=== PATIENT | male | born 1970 | race Two or more races ===

== ENCOUNTER 2024-10-23 13:30 | Outpatient (AMB) | payer MEDICAID, SELFPAY ==
[2024-10-23 13:42] VITALS: BP 125/85; PULSE 81; RESP 18; TEMP 36.3; O2SAT 93; BMI 34.0
--- NOTE | 2024-10-23 13:42 | ACNOTE_ITS ---
Vital Signs 10/23/24 13:42 Height 1.7 m Height Method Stated Weight 98.203 kg Weight Measurement Method Standing Scale BMI 34.0 BP 125/85 H Blood Pressure Source Automatic Cuff Blood Pressure Location Left Upper Arm Position Sitting Respiration 18 Pulse 81 Pulse Source Monitor Temp 97.3 F Temp Source Oral Pulse Oximetry (%) 93 L Oxygen Delivery Method Room Air Allergies/Meds Allergies & Medications Allergies ibuprofen Allergy (Severe, Verified 11/20/24 13:14) Difficulty Breathing Medication Reconciliation albuterol sulfate 90 mcg/actuation breath activated powder inhaler 1 inh inha lation QID PRN Wheezing or shortness of breath #1 ea 04/10/24 [Rx Confirmed 11/20/24] hydrocortisone 1 % topical cream (Anti-Itch (hydrocortisone)) 1 applic topical QDAY PRN skin irritation #28.35 grams 06/22/24 [Rx Confirmed 11/20/24] nebulizers #1 ea 08/07/24 [Rx Confirmed 11/20/24] budesonide-formoterol HFA 160 mcg-4.5 mcg/actuation aerosol inhaler (Symbicort) 2 puff inhalation BID 1 month #10.2 grams 10/05/24 [Rx Confirmed 11/20/24] gabapentin 100 mg capsule 100 mg PO QHS #7 caps 10/05/24 [Rx Confirmed 11/20/24] indomethacin 25 mg capsule 25 mg PO BID #10 caps 10/05/24 [Rx Confirmed ] albuterol sulfate 1.25 mg/3 mL solution for nebulization 1.25 mg (3 mL) inhalation QID PRN shortness of breath or wheezing #90 mL 11/06/24 [Rx Confirmed 11/20/24] albuterol sulfate 90 mcg/actuation aerosol inhaler 2 inh inhalation Q4H PRN shortness of breath or wheezing #8.5 grams 11/06/24 [Rx Confirmed 11/20/24] montelukast 10 mg tablet 10 mg PO QDAY asthma #30 tabs 11/06/24 [Rx Confirmed 11/20/24] prednisone 20 mg tablet 40 mg PO QDAY PRN asthma flare 5 days #30 tabs 11/20/24 [Rx] MA Intake Visit Data Collection New Patient or Established: Established Patient (seen at [facility] within 3 years) Seen by Clinical Staff ONLY (RN/MA): No Pain Present Currently: No Pain scale:: 0 Pain Scale Used: [place]/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 Required: No PCP or OBGYN visit in last 3 months: Yes Do You Feel Safe at Home: Yes Authorities Contacted: N/A Smoking Status Smoking Status: Never smoker Immunization / Flu Flu Vaccine in the Last 12 Months: No Flu Vaccine Exclusion Criteria: Refused by Patient Past Medical History Past Medical History NEUROLOGIC: Negative Neurological Disorders or Seizures CARDIAC: Negative Cardiac Disorders or Congestive Heart Failure RESPIRATORY: Positive Asthma; Negative Chronic Obstructive Pulmonary Disease (COPD) GASTROINTESTINAL: Negative Gastrointestinal Disorders or Hepatitis GENITOURINARY: Positive Genitourinary Disorders, Kidney Stones and Inguinal Hernia; Negative Renal Disease, Polycystic Kidney Disease, Neurogenic Bladder, Dialysis or Benign Prostatic Hyperplasia MUSCULOSKELETAL: Positive Fractures; Negative Arthritis ENDOCRINE: Negative Endocrine Disorders, Diabetes Mellitus Type 1 or Diabetes Mellitus Type 2 HEMATOLOGIC: Negative Blood Disorders OTHER HISTORY: Negative Hospitalization, Autoimmune Disease, Shingles, Falls, Blood Transfusions, Blood Transfusion Reaction, Anesthesia Reactions, MRSA or Cancer Family History FAMILY HISTORY: Positive Family Cardiac Disorders and Family Cancer; Negative Family Psychiatric Problems, Family Respiratory Disorders, Family Gastrointestinal Problems, Family Surgery or Family Anesthesia Reaction Surgical History SURGICAL: Negative Cardiac Surgery, Endocrine Surgery, Ear Surgery, Abdominal Surgery, Joint Replacement or Neurologic Surgery Social History SMOKING STATUS: Smoking status: Never smoker ALCOHOL: Alcohol Intake: Never HOUSING: Housing: Apartment LIVES WITH: Lives With: Alone Patient Portal [employer] Social History Living Situation History Housing: Apartment Tobacco History Smoking Status: Never smoker Alcohol History Alcohol Intake: Never Domestic Abuse History Do You Feel Safe at Home: Yes Review of Systems Report any current symptoms Only answer those that you have currently: Past Medical History Past Medical History Have you ever been diagnosed with any of the following: Neurological Problems Seizures: No Cardiology Problems Congestive Heart Failure: No Respiratory Problems Chronic Obstructive Pulmonary Disease (COPD): No Asthma: Yes Stomache/Intestinal Problems Hepatitis: No Genital/Urinary Problems Renal Disease: No Kidney Stones: Yes Polycystic Kidney Disease: No Neurogenic Bladder: No Inguinal Hernia: Yes Dialysis: No Benign Prostatic Hyperplasia: No Musculoskeletal Problems Arthritis: No Fractures: Yes Endocrine Problems Diabetes Mellitus Type 1: No Diabetes Mellitus Type 2: No Other Problems Hospitalization: No Autoimmune Disease: No Shingles: No Falls: No Blood Transfusions: No Blood Transfusion Reaction: No Anesthesia Reactions: No MRSA: No Cancer: No History of Present Illness HPI Narrative Patient is a 53 year old With a past medical history of bronchial asthma. He had multiple hospitalizations for the year due to exacerbations with the last ED visits 1 week ago. He did not have any ICU admissions. Patient is on maximum dose of LABA/ICS and albuterol inhaler as needed. He is currently the last 3 days of methylprednisone treatment as last ED visit. [ 08/07] patient reports daily exacerbations with shortness of breath at nighttime. He is unable to sleep due to constant wheezing not resolved by albuterol inhaler. Patient's technique of inhaler use was observed to be adequate and he is compliant with his medication. [08/14] patient had no relief of symptoms after addition of Montelukast last visit. Patient still did not get nebulizer machine. Daily night-time wheezing preventing patient from sleeping. Started on Prednisolone taper today and routine labs ordered. [09/13] patient here for 1 month follow up. Significant relief from asthma with montelukast and completed prednisone. Only complains of some wheezing at night. Endorses snoring, waking up at night from feeling like choking, daytime fatigue. Pulmnonology and sleep study referral pending. Labs reviewed significant for pre-diabetes and hyperlipidemia. Patient states since having asthma he has not been going to the gym or eating well lately. He is motivated for lifestyle changes. Will follow up in 3 months for A1c. 10/05/24: The patient presented with chief complaint of numbness over anterior lateral aspect of right thigh for past couple of weeks. He reported that his numbness increases when he is sitting for prolonged duration. It is also relieved by standing and stretching his lower limbs. He denied any headache, nausea or vomiting, chest pain, SOB, any changes in bowel or bladder habit or leg swelling. He also denied any fever or chills. 10/16/2024 Patient complains of daily wheezing for the past week, waking up at night 4/5 times to use rescue inhaler. Endorses SOB on doing his normal activity. Had to leave work today due to severe wheezing. Today he is saturating 91% on RA Currently on Symbicort 2 puff po BID and Montelukast 10 mg po daily. Ventolin inhaler and nebulizer prn. Recently completed 2 courses of steroids. From last labs patient is pre diabetic HbA1c 6.2 % and Cholesterol elevated. Will try lifestyle modification for now and repeat labs in November. 10/23/2024 Patient's wheezing is now under control and he had no exacerbations since completing his 5-day course of prednisone. He uses his nebulizer at night as needed. Patient has now returned to work and is doing much better. Advised to continue taking his Symbicort and montelukast daily along with Ventolin inhaler or nebulizer as needed. Will follow-up with patient in 2 months Objective/Exam Narrative Physical exam: Constitutional Alert, oriented x 3 and comfortable HEENT Vision grossly intact. Patent nares. Trachea midline Respiratory Chest normal on inspection and clear auscultation bilaterally Cardiovascular S1 and S2 audible, RRR. No murmurs carotid bruit. No gross JVD. Abdominal Soft and non tender to palpation in all quadrants. BS + Genitourinary No bladder tenderness, no flank pain. Normal to palpation Musculoskeletal Extremities tone within normal limits. No LE edema. Neurological CN II - XII grossly intact. Extremity motor and sensation grossly intact. Skin Warm, dry and intact. No apparent lesions. Psychiatric Patient has good affect, is cooperative Assessment & Plan Diagnosis / Problem List (1) Active asthma: Status: Chronic Assessment & Plan: Patient complains of daily wheezing for the past week, waking up at night 4/5 times to use rescue inhaler. Endorses SOB on doing his normal activity. Had to leave work today due to severe wheezing. Today he is saturating 91% on RA Currently on Symbicort 2 puff po BID and Montelukast 10 mg po daily. Ventolin inhaler and nebulizer prn. Recently completed 2 courses of steroids. Was counselled on avoiding triggers, wearing mask in public and getting an air purifier at previous visit Patient's wheezing is now under control and he had no exacerbations since completing his 5-day course of prednisone. He uses his nebulizer at night as needed. Patient has now returned to work and is doing much better. Advised to continue taking his Symbicort and montelukast daily along with Ventolin inhaler or nebulizer as needed. Will follow-up with patient in 2 months Plan: - To continue symbicort 160/4.5 2 puffs BID - To continue Montelukast 10 mg po Qdaily - Try using BOBBY before bed for wheezing. - Refilled albuterol solution for nebulization ? Will follow-up with patient in 2 months - Patient counselled if any persistent or worsening symptoms to report to the ED (2) Obstructive sleep apnea: Status: Chronic Assessment & Plan: STOPBANG score 6 Waking up frequently at night and subsequent daytime fatigue, requiring energy drinkss Plan: - Referral for pulmonlogy for sleep study. Pending insurance authorization (3) Prediabetes: Status: Chronic Assessment & Plan: A1c 6.2 Plan: - Counselled on lifestyle modifications: exercise and diet, cutting back on sugar - Patient motivated - Recheck A1c in 3 months. November (4) Hyperlipidemia: Status: Chronic Qualifiers: Hyperlipidemia type: moderate mixed hyperlipidemia not requiring statin therapy Qualified Code(s): E78.2 - Mixed hyperlipidemia Assessment & Plan: Increased from last visit. Patient attributes to diet and has not been exercising regularly. Plan: - Will try lifestyle modifications first - If LDL remains high, consider starting statin (5) Meralgia paresthetica of right side: Status: Resolved Assessment & Plan: The patient presented with chief complaint of numbness over right anterolateral aspect of thigh for past couple of weeks. He admitted wearing tight clothes and his numbness increases after sitting for prolonged period. Patient now endorses improvement of pain and no longer needs to take medications Plan: -Patient took the prescribed indomethacin and gabapentin for 3 days and then stopped taking due to the pain resolving -Recommended to wear loose clothes -Recommended warm compression -Recommended stretching exercises Additional Assessment Attending note: I, Leo Leary MD, attest that I was physically present for the daniels portions of the service and evaluated the patient with the resident and I reviewed and discussed the case with the resident and agree with the resident's findings and plans of care as documented above. Asthma improved with a 5-day cou rse of prednisone. Has returned to work. Continuing with baseline asthma treatment regimen. Has been referred to pulmonology for further evaluation. Reviewed diet and exercise measures to help with both glucose control and lipid control. Leo Leary MD Physician Billing Established Patient Established Patient: E/M Level 3-CPT 04204 Office Procedures [facility] Level of Care Nursing/Assessment Patient Status: Established Patient Nursing Assessment/Reassessment: Medication Reconciliation, Update PMH in EMR and Vital Signs Coordination of Care: Complex Care and Chronic Disease 1-5, Consent,records obtained, informed consent, Education Simp Pt/Fam and Staff clarify orders Established Patient Charge Established Patient Point Assignment: 85 Established Patient Point Charge: EP Level 3 (80-115)
== END 2024-10-23 14:25 | disposition home or self-care (01) ==
LOC: HODAHC 13:30
PROVIDERS: Supervising Provider Internal Medicine
DX: J45.909 Unspecified asthma, uncomplicated (principal); G47.33 Obstructive sleep apnea (adult) (pediatric); R73.03 Prediabetes; E78.2 Mixed hyperlipidemia
CPT/HCPCS: 99213; G0463

== ENCOUNTER 2024-11-06 14:21 | Outpatient (AMB) | payer MEDICAID, SELFPAY ==
[2024-11-06 15:05] VITALS: BP 128/84; PULSE 85; RESP 18; TEMP 36.3; O2SAT 90; BMI 34.0
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
== END 2024-11-06 15:26 | disposition home or self-care (01) ==
LOC: HODAHC 14:21
PROVIDERS: Supervising Provider Internal Medicine
DX: J45.909 Unspecified asthma, uncomplicated (principal); G47.33 Obstructive sleep apnea (adult) (pediatric); R73.03 Prediabetes; E78.2 Mixed hyperlipidemia
CPT/HCPCS: 99213; G0463

== ENCOUNTER 2024-11-20 13:07 | Outpatient (AMB) | payer MEDICAID, SELFPAY ==
[2024-11-20 13:14] VITALS: BP 132/82; PULSE 92; RESP 18; TEMP 36.8; O2SAT 92; BMI 33.7
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
== END 2024-11-20 13:49 | disposition home or self-care (01) ==
LOC: HODAHC 13:07
PROVIDERS: Supervising Provider Internal Medicine
DX: J45.909 Unspecified asthma, uncomplicated (principal); G47.33 Obstructive sleep apnea (adult) (pediatric); R73.03 Prediabetes; E78.2 Mixed hyperlipidemia
CPT/HCPCS: 99213; G0463

== ENCOUNTER 2025-01-08 14:32 | Outpatient (AMB) | payer MEDICAID, SELFPAY ==
[2025-01-08 09:58] VITALS: BP 150/84; PULSE 96; RESP 17; TEMP 36.9; O2SAT 93; BMI 33.0
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
== END 2025-01-08 15:03 | disposition home or self-care (01) ==
LOC: HODAHC 14:32
PROVIDERS: Supervising Provider Internal Medicine
DX: J45.909 Unspecified asthma, uncomplicated (principal)
CPT/HCPCS: 99213; G0463

== ENCOUNTER 2025-01-10 09:45 | Outpatient (AMB) | payer MEDICAID, SELFPAY ==
[2025-01-10 09:56] VITALS: BP 128/80; PULSE 96; RESP 17; TEMP 36.9; O2SAT 93; BMI 32.8
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
== END 2025-01-10 11:01 | disposition home or self-care (01) ==
LOC: HODAHC 09:45
PROVIDERS: Supervising Provider Internal Medicine; Visit Provider Student in an Organized Health Care Education/Training Program
DX: J45.909 Unspecified asthma, uncomplicated (principal); B34.9 Viral infection, unspecified
CPT/HCPCS: 99213; G0463

== ENCOUNTER 2025-01-13 05:39 | Emergency (ER) | payer MEDICAID, SELFPAY ==
[2025-01-13 05:40] VITALS: BMI 30.4
[2025-01-13 05:50] VITALS: BP 158/93; PULSE 93; RESP 18; TEMP 36.9; O2SAT 95
--- NOTE | 2025-01-13 05:54 | XR_ITS ---
Examination: PA chest single view Technique: AP chest single view Exam date and time: January 13, 2025 0558 hrs. Comparison July 30, 2024 Indications: Coughing shortness of breath beginning 2 days ago. Findings: Normal heart size Basilar bronchitis versus early bronchopneumonia No pulmonary edema Intact osseous structures Impression: Bibasilar bronchitis versus early bronchopneumonia, clinical correlation advised
--- NOTE | 2025-01-13 05:55 | EDRME_ITS ---
Rapid Medical Screening Exam ON LICENSE OF [facility] Arrival date/time: 01/13/25 05:39 54M with history of asthma presents to ED with 3 days of worsening cough and SOB. Patient went to resident clinic and was put on Tamiflu for presumptive influenza. Chief Complaint: Flu Like Symptoms Vital signs: Vital Signs Temperature 98.4 F 01/13/25 05:50 Pulse Rate 93 01/13/25 05:50 Respiratory Rate 18 01/13/25 05:50 Blood Pressure 158/93 H 01/13/25 05:50 Pulse Oximetry (%) 95 01/13/25 05:50 Oxygen Delivery Method Room Air 01/13/25 05:50
--- NOTE | 2025-01-13 06:23 | EDNOTE_ITS ---
ED General RME/HPI General Chief complaint: Flu Like Symptoms Stated complaint: SORE THROAT, ASTHMA Time Seen by Provider: 01/13/25 06:16 Arrival date/time: 01/13/25 05:39 RME / HPI RME / HPI narrative: 01/13/25 05:39 54M with history of asthma presents to ED with 3 days of worsening cough and SOB. Patient went to resident clinic and was put on Tamiflu for presumptive influenza. DR. LAZO MAIN ED EVALUATION: 54 year old male presents to the Emergency Department with complaint of losing his voice since yesterday. Patient reports a lot of cough onset 3 days. Symptoms are moderate. No fevers, chills, abdominal pain, chest pain, dysuria, or any other symptoms. PMHx: Asthma Social Hx: No tobacco, alcohol, or substance use. Related Data Previous Rx's ?Medication ?Instructions ?Recorded albuterol sulfate 90 mcg/actuation 1 inh inhalation QI D PRN Wheezing 04/10/24 breath activated powder inhaler or shortness of breath #1 ea hydrocortisone 1 % topical cream 1 applic topical QDAY PRN skin 06/22/24 (Anti-Itch (hydrocortisone)) irritation #28.35 grams nebulizers #1 ea 08/07/24 gabapentin 100 mg capsule 100 mg PO QHS #7 caps indomethacin 25 mg capsule 25 mg PO BID #10 caps 10/05 montelukast 10 mg tablet 10 mg PO QDAY asthma #30 tab s 11/06/24 albuterol sulfate 1.25 mg/3 mL 1.25 mg (3 mL) inhalati on QID PRN 01/10/25 solution for nebulization Wheezing/SOB #90 mL budesonide-formoterol HFA 160 2 puff inhalation BID 1 month 01/10/25 mcg-4.5 mcg/actuation aerosol #10.2 grams inhaler (Symbicort) oseltamivir 75 mg capsule (Tamiflu) 75 mg PO BID 5 day s #10 caps 01/10/25 albuterol sulfate 2.5 mg/3 mL 2.5 mg (3 mL) inhalation Q4H PRN 01/13/25 (0.083 %) solution for nebulization shortness of breat h or wheezing #90 mL albuterol sulfate 90 mcg/actuation 2 inh inhalation Q4 H PRN shortness 01/13/25 aerosol inhaler of breath or wheezing #8.5 g michel prednisone 20 mg tablet 20 mg PO QDAY 5 days #5 tabs 01/13/25 Allergies Allergy/AdvReac Type Severity Reaction Status Date / Time ibuprofen Allergy Severe Difficulty Verified 01/10/25 10:04 Breathing Review of Systems Review of Systems Systems Reviewed: All systems reviewed, normal except as documented Narrative Review of Systems: GEN: No fever, no chills, no weight loss, + losing his voice EYES: No discharge, no visual changes, no pain HEENT: No ear pain, no congestion, no sore throat PULM: No shortness of breath, + cough CV: No chest pain, no dyspnea on exertion, no palpitations GI: No nausea, no vomiting, no diarrhea, no pain, no constipation : No frequency, no urgency and no dysuria MUSC/SKEL: No joint pain, no back pain SKIN: No rash PSYCH: No hallucinations, no depression HEME/LYMPH: No easy bleeding or bruising tendencies NEURO: No weakness, no headache Past Medical History Past Medical History NEUROLOGIC: Negative Neurological Disorders or Seizures CARDIAC: Negative Cardiac Disorders or Congestive Heart Failure RESPIRATORY: Positive Asthma; Negative Chronic Obstructive Pulmonary Disease (COPD) GASTROINTESTINAL: Negative Gastrointestinal Disorders or Hepatitis GENITOURINARY: Positive Genitourinary Disorders, Kidney Stones and Inguinal Hernia; Negative Renal Disease, Polycystic Kidney Disease, Neurogenic Bladder, Dialysis or Benign Prostatic Hyperplasia MUSCULOSKELETAL: Positive Fractures; Negative Musculoskeletal Disorders or Arthritis ENDOCRINE: Negative Endocrine Disorders, Diabetes Mellitus Type 1 or Diabetes Mellitus Type 2 HEMATOLOGIC: Negative Blood Disorders OTHER HISTORY: Negative Hospitalization, Autoimmune Disease, Shingles, Falls, Blood Transfusions, Blood Transfusion Reaction, Anesthesia Reactions, MRSA or Cancer Family History FAMILY HISTORY: Positive Family Cardiac Disorders and Family Cancer; Negative Family Psychiatric Problems, Family Respiratory Disorders, Family Gastrointestinal Problems, Family Surgery or Family Anesthesia Reaction Surgical History SURGICAL: Negative Cardiac Surgery, Endocrine Surgery, Ear Surgery, Abdominal Surgery, Joint Replacement or Neurologic Surgery Social History SMOKING STATUS: Never smoker SUBSTANCE USE: does not use ALCOHOL: Never ED Exam Narrative Physical exam: GENERAL APPEARANCE: Well hydrated, well nourished. + hoarseness consistent with laryngitis VITALS: All vitals were reviewed and the pulse ox is 95% on room air which is normal according to my interpretation. HEENT: Normocephalic, atramatic, EOMI, EACs are patent. There is no bulge or retraction. Throat without erythema or exudate. Moist oromucosa. No jaundice NECK: Supple, no JVD or bruits. CARDIOVASCULAR: Heart regular without S3-S4 or murmur. No rubs or gallops. LUNGS/CHEST: There is diminished breath sounds bilaterally and some wheezing. ABDOMEN: Soft, nontender, with normal bowel sounds. No pulsatile masses. No rebound, rigidity, or guarding. No incarcerated hernia. Normal inspection and palpation. EXTREMITIES: No edema, clubbing, or cyanosis. Intact CSM. Normal inspection and palpation. SKIN: Warm and dry without rashes. Normal inspection. MUSCULOSKELETAL: No gross deformity, full ROM all extremities. Normal inspection. NEURO: Alert and oriented x3. Cranial nerves II through XII grossly intact. There are no other motor or sensory deficits noted. PSYCHIATRIC: Normal mood and affect. No psychosis. Course Quality Measures none Orders Category Date Time Status Bedside COVID-19 Antigen Test NOW Care 01/13/25 05:54 Active Bedside Influenza A&B Antigen Test NOW Care 01/13/25 05:55 Completed XR chest 1V portable Stat Exams 01/13/25 05:54 Completed CBC Stat Lab 01/13/25 06:35 Completed Comprehensive Metabolic Panel Stat Lab 01/13/25 06:35 Completed Troponin I Stat Lab 01/13/25 06:35 Completed ALBUTEROL RT 0.5ml [Proventil Rt 0.5ml] Med 01/13/25 08:21 Discontinued 10 mg HHN X1 ONE Budesonide Rt [Pulmicort Rt Alexandra] Med 01/13/25 05:55 Discontinued 0.5 mg INH X1 ONE Dexamethasone Inj [Decadron Inj] Med 01/13/25 05:54 Discontinued 10 mg PO X1 ONE Ipratropium [place] Rt Alexandra [Atrovent Rt Alexandra] Med 01/13/25 05:54 Discontinued 1 mg INH X1 ONE Levalbuterol Rt [Xopenex Rt Alexandra] Med 01/13/25 05:54 Discontinued 5 mg INH X1 ONE Sodium Chloride Rt Alexandra 0.9% [NS Rt Alexandra 0.9%] Med 01/13/25 05:54 Active 3 ml INH PRN PRN Sodium Chloride Rt Alexandra 0.9% [NS Rt Alexandra 0.9%] Med 01/13/25 08:21 Active 3 ml INH PRN PRN predniSONE Med 01/13/25 05:54 Discontinued 40 mg PO X1 ONE Vital Signs Vital signs: Vital Signs Temperature 98.4 F 01/13/25 05:50 Pulse Rate 93 01/13/25 05:50 Respiratory Rate 18 01/13/25 05:50 Blood Pressure 158/93 H 01/13/25 05:50 Pulse Oximetry (%) 95 01/13/25 05:50 Oxygen Delivery Method Room Air 01/13/25 05:50 [facility] Patient data External records reviewed:: [facility] previous records (Reviewed last admission discharge dated 02/23/24, patient admitted for the following: Asthma with acute exacerbation) Clinical information provided by:: patient Social determinants that could affect healthcare access:: none Patient has the following chronic illnesses:: Asthma How is presenting disease/condition affected by chronic disease/condition?: e xacerbated by Evaluation data The following diagnostics were reviewed and interpreted by me:: lab results and radiology exam(s) Lab and/or radiology exams considered but not ordered:: none Interpretation Summary: See above under [facility] narrative. RADIOLOGY Procedure(s): XR chest 1V portable Accession Number(s): [id number] cc: Jeannie Rocha; Steve Cash MD; Paulino Richardson PA-C~ Examination: PA chest single view Technique: AP chest single view Exam date and time: January 13, 2025 0558 hrs. Comparison July 30, 2024 Indications: Coughing shortness of breath beginning 2 days ago. Findings: Normal heart size Basilar bronchitis versus early bronchopneumonia No pulmonary edema Intact osseous structures Impression: Bibasilar bronchitis versus early bronchopneumonia, clinical correlation advised Dictated By: Steve Cash MD Medications Medications considered but not ordered:: none Medication administrations:: Medication Administration History Sodium Chloride (Sodium Chloride Rt Alexandra 0.9% 3 Ml Nebu) 3 ml INH PRN PRN PRN Reason: SOLN Stop: 02/12/25 05:53 Sodium Chloride (Sodium Chloride Rt Alexandra 0.9% 3 Ml Nebu) 3 ml INH PRN PRN PRN Reason: SOLN Stop: 02/12/25 08:20 Discontinued Medications Albuterol (Albuterol Rt 2.5 Mg/0.5 Ml Nebu) 10 mg HHN X1 ONE Stop: 01/13/25 08:22 Last Admin: 01/13/25 08:30 Dose: 10 mg Documented By: CHEO Budesonide (Budesonide Rt 0.5 Mg/2 Ml Nebu) 0.5 mg INH X1 ONE Stop: 01/13/25 05:56 Last Admin: 01/13/25 06:31 Dose: 0.5 mg Documented By: CHEO Dexamethasone Sodium Phosphate (Dexamethasone Sod Phos Inj 10 Mg/Ml Vial) 10 mg PO X1 ONE Stop: 01/13/25 05:55 Last Admin: 01/13/25 08:28 Dose: 10 mg Documented By: Comments: GIVEN PO Ipratropium [place] (Ipratropium Rt 0.5 Mg/ 2.5 Ml Nebu) 1 mg INH X1 ONE Stop: 01/13/25 05:55 Last Admin: 01/13/25 06:31 Dose: 1 mg Documented By: CHEO Levalbuterol HCl (Levalbuterol Rt 1.25 Mg/0.5 Ml Nebu) 5 mg INH X1 ONE Stop: 01/13/25 05:55 Last Admin: 01/13/25 06:31 Dose: 5 mg Documented By: CHEO Prednisone (Prednisone 20 Mg Tablet) 40 mg PO X1 ONE Stop: 01/13/25 05:55 Last Admin: 01/13/25 08:27 Dose: 40 mg Documented By: DO see above Consultations Consultation(s) initiated? (list below): No Diagnosis Differential Diagnosis ED Complaint MDM: Pneumonia. Asthma. Bronchitis. Most likely diagnosis given after review of the tests above:: Asthma. Bronchitis. Admission Indicated Admission indicated?: not indicated Explain why admission is indicated or not indicated:: Patient does not want to be admitted Admission Request Was there a request for admission?: No Disposition Plan Disposition Plan: Discharge Discharge Attestation Discharge Attestation: The patient and all family members were given an opportunity to ask questions and understood the discharge instructions. Discharge instructions specifically effects, indications for sooner follow up or return to the emergency department, and the expected course of current diagnosis. Patient condition: Stable Medical Decision Making MDM Narrative MDM Narrative: Libby Zazuetamonica Don, am scribing for and in the presence of Dr. Lazo. CBC is negative. CMP negative. Troponin negative. COVID-19 and influenza are negative. Chest x-ray interpreted by me: Clear lungs. Heart normal. Mediastinum normal. No infiltrate. No consolidation. Ribs are normal. Clinically speaking the patient has no fever. In the emergency department the patient received nebulizer treatment. As well as O2. And he continued to improve. By 11:30 AM, the patient is alert awake oriented x 4 GCS of 15, lungs are clear full and equal. O2 saturation is 90% room air. I suggested to him that we going to admit him to the hospital because of the O2 saturation being 90%. But he told me that this is chronic for him and my doctors know that . He said the 90% is normal for him. And he wants to go home. He does not want to be admitted. He does have a nebulizer at home Differential Diagnosis Differential Diagnosis: Pneumonia. Asthma. Bronchitis. Lab Data 01/13/25 06:35 01/13/25 06:35 Labs: Lab Results 01/13/25 Range/Units 06:35 WBC 8.4 (3.8-10.6) Thou/mm3 RBC 5.46 (4.50-5.90) Miln/mm3 Hgb 15.8 (13.5-16.0) g/dL Hct 46.2 (41.0-53.0) % MCV 85 (80-100) fL MCH 28.9 (25.0-35.0) pg MCHC 34.2 (31.0-37.0) g/dl RDW Std Deviation 36.1 (35.1-43.9) fL Plt Count 273 (140-440) Thou/mm3 Neut % (Auto) 63 (37-80) % Lymph % (Auto) 23 (10-50) % [place] % (Auto) 7 (0-12) % Eos % (Auto) 5 (0-10) % Baso % (Auto) 1 (0-2.5) % Neut # (Auto) 5.2 (1.8-7.7) Thou/mm3 Lymph # (Auto) 2.0 (1.0-4.8) Thou/mm3 [place] # (Auto) 0.6 (0.0-0.8) Thou/mm3 Eos # (Auto) 0.5 (0.0-0.5) Thou/mm3 Baso # (Auto) 0.1 (0.0-0.2) Thou/mm3 Immature Gran # (Auto) 0.03 H (0.00-0.00) Thou/mm3 Absolute Nucleated RBC 0.00 (0.00-0.00) Thou/mm3 Immature Gran % 0 (0-0) % Nucleated RBC % 0 (0) /100 WBC Sodium 141 (136-145) mMol/L Potassium 4.7 (3.4-5.1) mMol/L Chloride 106 (98-107) mMol/L Carbon Dioxide 28.7 (20.0-31.0) mMol/L Anion Gap 6 L (7-16) BUN 27 H (9-23) mg/dL Creatinine 1.1 (0.6-1.3) mg/dL Estim Creat Clear Calc 83.0 (>60) mL/min eGFR > 60 (60 - ) See Note BUN/Creatinine Ratio 25 H (12-20) Ratio Glucose 102 (74-106) mg/dL Calculated Osmolality 286 (275-295) Calcium 9.1 (8.3-10.6) mg/dL Corrected Calcium 9.1 (8.5-10.1) mg/dL Total Bilirubin 0.6 (0.3-1.2) mg/dL AST 24 (0-34) U/L ALT 18 (10-49) U/L Alkaline Phosphatase 111 (46-116) U/L Troponin I < 0.020 (0.0-0.045) ng/mL Total Protein 6.9 (5.7-8.2) gm/dL Albumin 4.3 (3.5-5.0) gm/dL Globulin 2.6 (2.3-3.5) gm/dL Albumin/Globulin Ratio 1.7 (1.2-2.2) Discharge Plan Plan Patient Disposition: HOME (Self Care) Disposition Comment: Stable and improved Prescriptions/Referrals Prescriptions/Med Rec: New albuterol sulfate 2.5 mg /3 mL (0.083 %) solution for nebulization 2.5 mg inhalation Q4H PRN (Reason: shortness of breath or wheezing) Qty: 90 0RF albuterol sulfate 90 mcg/actuation HFA aerosol inhaler 2 inh inhalation Q4H PRN (Reason: shortness of breath or wheezing) Qty: 8.5 0RF Rx Instructions: With AeroChamber and mask for pediatric use prednisone 20 mg tablet 20 mg PO QDAY 5 Days Qty: 5 0RF No Action albuterol sulfate 90 mcg/actuation aerosol powdr breath activated 1 inh inhalation QID PRN (Reason: Wheezing or shortness of breath) Qty: 1 6RF budesonide-formoterol [Symbicort] 160-4.5 mcg/actuation HFA aerosol inhaler 2 puff inhalation BID 30 Days Qty: 10.2 6RF oseltamivir [Tamiflu] 75 mg capsule 75 mg PO BID 5 Days Qty: 10 0RF albuterol sulfate 1.25 mg/3 mL solution for nebulization 1.25 mg inhalation QID PRN (Reason: Wheezing/SOB) Qty: 90 2RF hydrocortisone [Anti-Itch (HC)] 1 % cream 1 applic topical QDAY PRN (Reason: skin irritation) Qty: 28.35 0RF (DME) nebulizers Misc See Rx Instructions .Route Qty: 1 0RF Rx Instructions: Use QID and PRN with Albuterol As directed indomethacin 25 mg capsule 25 mg PO BID Qty: 10 0RF Rx Instructions: administer with food or milk gabapentin 100 mg capsule 100 mg PO QHS Qty: 7 0RF montelukast 10 mg tablet 10 mg PO QDAY MDD 10 mg Qty: 30 5RF Referrals: Jeannie Rocha PA-C [Primary Care Provider] - In 1 week Problem List Clinical Impression: Asthma, Bronchitis Patient/Caregiver Discharge Instructions Education Materials: ED Bronchitis with Wheezing (Adult), Asthma Additional Instructions: Continue your nebulizer treatment as needed for wheezing. Also take prednisone as prescribed. See your doctor for recheck in 3 days. Return the nearest emergency department if any problem. Note: You told me that your oxygen saturation of 90% is normal for you Print Language: Turkish Stand Alone Forms: Anne Award Info., Patient Portal Info Letter
[2025-01-13] MEDS: LEVALBUTEROL RT 1.25 MG/0.5 ML NEBU 5 MG INH (06:31)
[2025-01-13] MEDS: BUDESONIDE RT 0.5 MG/2 ML NEBU INH (06:31)
[2025-01-13] MEDS: IPRATROPIUM RT 0.5 MG/ 2.5 ML NEBU 1 MG INH (06:31)
[2025-01-13 06:32] VITALS: PULSE 82; RESP 18; O2SAT 97
[2025-01-13 06:57] LABS: Basophils # (Auto) 0.1 Thou/mm3 (0.0-0.2); Basophils % (Auto) 1 % (0-2.5); Eosinophils # (Auto) 0.5 Thou/mm3 (0.0-0.5); Eosinophils % (Auto) 5 % (0-10); Hematocrit 46.2 % (41.0-53.0); Hemoglobin 15.8 g/dL (13.5-16.0); Immature Granulocytes % (Auto) 0 % (0-0); Immature Granulocytes Auto 0.03 Thou/mm3 (0.00-0.00); Lymphocytes % (Auto) 23 % (10-50); Mean Corpuscular HGB Conc 34.2 g/dl (31.0-37.0); Mean Corpuscular Hemoglobin 28.9 pg (25.0-35.0); Mean Corpuscular Volume 85 fL (80-100); Monocytes # (Auto) 0.6 Thou/mm3 (0.0-0.8); Monocytes % (Auto) 7 % (0-12); Neutrophils # (Auto) 5.2 Thou/mm3 (1.8-7.7); Neutrophils % (Auto) 63 % (37-80); Nucleated Red Blood Cell % 0 /100 WBC (0); Platelet Count 273 Thou/mm3 (140-440); RDW Standard Deviation 36.1 fL (35.1-43.9); Red Blood Count 5.46 Miln/mm3 (4.50-5.90); White Blood Count 8.4 Thou/mm3 (3.8-10.6)
[2025-01-13 07:15] LABS: Alanine Aminotransferase 18 U/L (10-49); Albumin, Serum 4.3 gm/dL (3.5-5.0); Albumin/Globulin Ratio 1.7 (1.2-2.2); Alkaline Phosphatase 111 U/L (46-116); Anion Gap 6 (7-16); Aspartate Amino Transferase 24 U/L (0-34); BUN/Creatinine Ratio 25 Ratio (12-20); Bilirubin,Total 0.6 mg/dL (0.3-1.2); Blood Urea Nitrogen 27 mg/dL (9-23); Calcium 9.1 mg/dL (8.3-10.6); Calcium (Corrected) 9.1 mg/dL (8.5-10.1); Carbon Dioxide 28.7 mMol/L (20.0-31.0); Chloride 106 mMol/L (98-107); Creatinine (Component) 1.1 mg/dL (0.6-1.3); Globulin 2.6 gm/dL (2.3-3.5); Glucose 102 mg/dL (74-106); Osmolality,Calculated 286 (275-295); Potassium 4.7 mMol/L (3.4-5.1); Sodium 141 mMol/L (136-145); Total Protein 6.9 gm/dL (5.7-8.2); Troponin I < 0.020 ng/mL (0.0-0.045); eGFR > 60 See Note
[2025-01-13 07:55] VITALS: BP 126/75; PULSE 97; RESP 20; TEMP 36.6; O2SAT 97
[2025-01-13] MEDS: predniSONE 20 MG TABLET 40 MG PO (08:27)
[2025-01-13] MEDS: DEXAMETHASONE SOD PHOS INJ 10 MG/ML VIAL PO (08:28)
[2025-01-13 08:30] VITALS: PULSE 85; PULSE 87; RESP 20; O2SAT 98
[2025-01-13] MEDS: ALBUTEROL RT 2.5 MG/0.5 ML NEBU 10 MG HHN (08:30)
[2025-01-13 10:06] VITALS: BP 128/78; PULSE 100; RESP 22; TEMP 36.7; O2SAT 90
--- NOTE | 2025-01-13 10:12 | PC.NURSE ---
PT'S 02 SATS RA AT 90-91%. PER PT THIS IS NORMAL FOR HIM AND HE WANTS TO GO HOME. WILL INFORM DR LAZO AT THIS TIME.
== END 2025-01-13 12:01 | disposition home or self-care (01) ==
PROVIDERS: Physician Assistant; Emergency Provider Emergency Medicine; PCP Physician Assistant
DX: J45.909 Unspecified asthma, uncomplicated (principal)
CPT/HCPCS: 36415; 71045; 80053; 84484; 85025; 87400; 87811; 94644; 99284; J1100; J7512

== ENCOUNTER 2025-01-30 11:02 | Outpatient (AMB) | payer MEDICAID, SELFPAY ==
[2025-01-30 11:08] VITALS: BP 131/81; PULSE 88; RESP 16; TEMP 36.6; O2SAT 94
--- NOTE | 2025-01-30 11:08 | ACNOTE_ITS ---
Vital Signs 01/30/25 11:08 Weight 95.311 kg Weight Measurement Method Standing Scale BP 131/81 H Blood Pressure Source Automatic Cuff Blood Pressure Location Left Upper Arm Position Sitting Respiration 16 Pulse 88 Pulse Source Monitor Temp 97.9 F Temp Source Temporal Artery Scan Pulse Oximetry (%) 94 L Oxygen Delivery Method Room Air Allergies/Meds Allergies & Medications Allergies ibuprofen Allergy (Severe, Verified 01/30/25 11:09) Difficulty Breathing Medication Reconciliation albuterol sulfate 90 mcg/actuation breath activated powder inhaler 1 inh inhalation QID PRN Wheezing or shortness of breath #1 ea 04/10/24 [Rx Confirmed 01/30/25] hydrocortisone 1 % topical cream (Anti-Itch (hydrocortisone)) 1 applic topical QDAY PRN skin irritation #28.35 grams 06/22/24 [Rx Confirmed 01/30/25] nebulizers #1 ea 08/07/24 [Rx Confirmed 01/30/25] gabapentin 100 mg capsule 100 mg PO QHS #7 caps 10/05/24 [Rx Confirmed 01/30/25] indomethacin 25 mg capsule 25 mg PO BID #10 caps 10/05/24 [Rx Confirmed 01/30/25] albuterol sulfate 1.25 mg/3 mL solution for nebulization 1.25 mg (3 mL) inhalation QID PRN Wheezing/SOB #90 mL 01/10/25 [Rx Confirmed 01/30/25] albuterol sulfate 2.5 mg/3 mL (0.083 %) solution for nebulization 2.5 mg (3 mL) inhalation Q4H PRN shortness of breath or wheezing #90 mL 01/13/25 [Rx Confirmed 01/30/25] albuterol sulfate 90 mcg/actuation aerosol inhaler 2 inh inhalation Q4H PRN shortness of breath or wheezing #8.5 grams 01/13/25 [Rx Confirmed 01/30/25] budesonide-formoterol HFA 160 mcg-4.5 mcg/actuation aerosol inhaler (Symbicort) 2 puff inhalation BID 1 month #10.2 grams 01/30/25 [Rx] montelukast 10 mg tablet 10 mg PO QDAY asthma #30 tabs 01/30/25 [Rx] MA Intake Visit Data Collection New Patient or Established: Established Patient (seen at [facility] within 3 years) Seen by Clinical Staff ONLY (RN/MA): No Pain Present Currently: No Pain scale:: 0 Pain Scale Used: [place]/Numerical Director [employer] Required: No PCP or OBGYN visit in last 3 months: Yes Hx Now: No Do You Feel Safe at Home: Yes Authorities Contacted: N/A Smoking Status Smoking Status: Never smoker Immunization / Flu Flu Vaccine in the Last 12 Months: No Flu Vaccine Exclusion Criteria: No Exclusion Criteria Past Medical History Past Medical History NEUROLOGIC: Negative Neurological Disorders or Seizures CARDIAC: Negative Cardiac Disorders or Congestive Heart Failure RESPIRATORY: Positive Asthma; Negative Chronic Obstructive Pulmonary Disease (COPD) GASTROINTESTINAL: Negative Gastrointestinal Disorders or Hepatitis GENITOURINARY: Positive Genitourinary Disorders, Kidney Stones and Inguinal Hernia; Negative Renal Disease, Polycystic Kidney Disease, Neurogenic Bladder, Dialysis or Benign Prostatic Hyperplasia MUSCULOSKELETAL: Positive Fractures; Negative Arthritis ENDOCRINE: Negative Endocrine Disorders, Diabetes Mellitus Type 1 or Diabetes Mellitus Type 2 HEMATOLOGIC: Negative Blood Disorders OTHER HISTORY: Negative Hospitalization, Autoimmune Disease, Shingles, Falls, Blood Transfusions, Blood Transfusion Reaction, Anesthesia Reactions, MRSA or Cancer Family History FAMILY HISTORY: Positive Family Cardiac Disorders and Family Cancer; Negative Family Psychiatric Problems, Family Respiratory Disorders, Family Gastrointestinal Problems, Family Surgery or Family Anesthesia Reaction Surgical History SURGICAL: Negative Cardiac Surgery, Endocrine Surgery, Ear Surgery, Abdominal Surgery, Joint Replacement or Neurologic Surgery Social History SMOKING STATUS: Smoking status: Never smoker ALCOHOL: Alcohol Intake: Never HOUSING: Housing: Apartment LIVES WITH: Lives With: Alone Patient Portal Da Social History Living Situation History Housing: Apartment Tobacco History Smoking Status: Never smoker Alcohol History Alcohol Intake: Never Domestic Abuse History Do You Feel Safe at Home: Yes Review of Systems Report any current symptoms Only answer those that you have currently: Past Medical History Past Medical History Have you ever been diagnosed with any of the following: Neurological Problems Seizures: No Cardiology Problems Congestive Heart Failure: No Respiratory Problems Chronic Obstructive Pulmonary Disease (COPD): No Asthma: Yes Stomache/Intestinal Problems Hepatitis: No Genital/Urinary Problems Renal Disease: No Kidney Stones: Yes Polycystic Kidney Disease: No Neurogenic Bladder: No Inguinal Hernia: Yes Dialysis: No Benign Prostatic Hyperplasia: No Musculoskeletal Problems Arthritis: No Fractures: Yes Endocrine Problems Diabetes Mellitus Type 1: No Diabetes Mellitus Type 2: No Other Problems Hospitalization: No Autoimmune Disease: No Shingles: No Falls: No Blood Transfusions: No Blood Transfusion Reaction: No Anesthesia Reactions: No MRSA: No Cancer: No History of Present Illness HPI Narrative Patient is a 54 year old male with history of asthma who presented to the [facility] today with concerns of wheezing, asthma, and lost voice for roughly 1 month. Patient was previously seen in [facility] last, was also in ED roughly 3 weeks ago for concerns of hoarse voice. Was found to have oxygen saturation of 90% at that time, hospitalization was offered however patient refused. Today, patient states he has continued to have symptoms despite completing a prednisone course that was given upon ED discharge, has also been compliant with his albuterol taken at most twice daily, does not endorse symbicort or montelukast use. Patient has been referred to pulmonology, has appointment set for 01/31/2025. 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 Today oxygen saturation noted to be 94%. Will advise patient continue symbicort and montelukast daily with loratadine daily. New prescriptions of symbicort and montelukast have been sent, patient stated he will continue OTC loratadine for now. Advise patient follow up with pulmonology for further evaluation and management, patient may benefit from allergen testing in future if symptoms do not improve. Review of Systems Review of Systems Narrative Review of Systems: GENERAL: Denies fevers/chills or diaphoresis. HEENT: Denies headache or visual/hearing changes. NEURO: Denies unusual weakness or difficulty speaking. CARDIO: Denies chest pain or palpitations. PULM: Endorses wheezing and hoarse voice GI: Denies abdominal pain PSYCH: Cooperative, pleasant mood & affect. Objective/Exam Narrative Physical exam: General: AOx3, cooperative, in no acute distress HEENT: Atraumatic/normocephalic, IRMA, neck supple without masses, Mallampati score 2 Heart: RRR, S1 and S2 without clicks or murmurs Lungs: Wheezing noted on left upper lung field on inspiration, no shortness of breath Abdomen: Soft, nontender. Bowel sounds present on all quadrants Skin: Intact, no cyanosis or edema noted Neuro: No focal neurological deficits noted Assessment & Plan Diagnosis / Problem List (1) Active asthma: Status: Chronic Plan: Symbicort and Montelukast prescription sent, advised daily loratadine [id number]. Recommend pulmonlogy follow up, patient has appointment set for 01/31/2025. Patient may benefit from allergen testing in future if symptoms do not improve. Will hold on prednisone course for now as patient completed prednisone course after ED discharge last month and did not see any improvement. Additional Plan Patient case discussed with attending physician Dr. Sapphire Luna, DO PGY-3 Office Procedures [facility] Level of Care Nursing/Assessment Patient Status: Established Patient Nursing Assessment/Reassessment: Medication Reconciliation, Update PMH in EMR and Vital Signs Coordination of Care: Complex Care and Chronic Disease 1-5, Consent,records obt ained, informed consent, Education Simp Pt/Fam, Lab and Imaging orders and Staff clarify orders Established Patient Charge Established Patient Point Assignment: 100 Established Patient Point Charge: EP Level 3 (80-115)
== END 2025-01-30 11:50 | disposition home or self-care (01) ==
LOC: HODAHC 11:02
PROVIDERS: Supervising Provider Internal Medicine; Visit Provider Student in an Organized Health Care Education/Training Program
DX: J45.909 Unspecified asthma, uncomplicated (principal)
CPT/HCPCS: 99213; G0463

== ENCOUNTER 2025-06-02 07:55 | Emergency (ER) | payer MEDICAID, SELFPAY ==
--- NOTE | 2025-06-02 08:00 | PC.NURSE ---
Pt. very rude stating he needs to be seen right away. Pt. talking in full sentences. Pt. stating he will no longer answer any more triage questions.
[2025-06-02 08:02] VITALS: BP 203/135; PULSE 100; RESP 24; TEMP 36.7; O2SAT 96
--- NOTE | 2025-06-02 08:09 | EKG_ITS ---
[facility] Test Date: 2025-06-02 Pat Name: ROGELIO DIXON Department: Room: - Gender: Male Audit Mgr: : [id number] Requested By: Rajwinder Gaona Order Number: [id number] Reading MD: Rajwinder Gaona Measurements Intervals [place] Rate: 93 P: 78 MS: 140 QRS: 70 QRSD: 87 T: 52 QT: 322 QTc: 402 Interpretive Statements SINUS RHYTHM POSSIBLE RIGHT VENTRICULAR CONDUCTION DELAY [RSR (QR) IN V1/V2] Compared to ECG 02/09/2023 11:17:58 T-wave abnormality no longer present /store/S0/[id number].pdf
--- NOTE | 2025-06-02 08:12 | XR_ITS ---
Examination: AP chest single view Technique one AP portable upright chest single view Date and time: June 02, 2025, 0832 hrs. Comparison January 13, 2025 Indications: Chest pain shortness of breath today. Findings: Normal heart size. The lungs are clear. Mild osteopenia. Impression: No active disease.
--- NOTE | 2025-06-02 08:17 | PD.EDSOB ---
ED SOB =RME/HPI General Chief Complaint: Shortness of Breath/Dyspnea Stated Complaint: SOB X 3 days, asthma attack Time Seen by Provider: 06/02/25 08:02 Arrival date/time: 06/02/25 07:55 This is a 54-year-old male that comes in with complaints of shortness of breath for the past 3 days. Patient has a history of asthma. Patient denies drinking smoking. Patient uses Singulair and albuterol inhaler. Patient also complains of chest pain/chest tightness. Patient very anxious upon arrival. Patient placed on 3 L nasal cannula upon arrival. Related Data Previous Rx's ?Medication ?Instructions ?Recorded albuterol sulfate 90 mcg/actuation 1 inh inhalation QID PRN Wheezing 04/10/24 breath activated powder inhaler or shortness of breath #1 ea hydrocortisone 1 % topical cream 1 applic topical QDAY PRN skin 06/22/24 (Anti-Itch (hydrocortisone)) irritation #28.35 grams nebulizers #1 ea 08/07/24 gabapentin 100 mg capsule 100 mg PO QHS #7 caps 10/05/24 indomethacin 25 mg capsule 25 mg PO BID #10 caps 10/05/24 albuterol sulfate 1.25 mg/3 mL 1.25 mg (3 mL) inhalation QID PRN 01/10/25 solution for nebulization Wheezing/SOB #90 mL albuterol sulfate 2.5 mg/3 mL 2.5 mg (3 mL) inhalation Q4H PRN 01/13/25 (0.083 %) solution for nebulization shortness of breath or wheezing #90 mL albuterol sulfate 90 mcg/actuation 2 inh inhalation Q4H PRN shortness 01/13/25 aerosol inhaler of breath or wheezing #8.5 grams budesonide-formoterol HFA 160 2 puff inhalation BID 1 month 01/30/25 mcg-4.5 mcg/actuation aerosol #10.2 grams inhaler (Symbicort) montelukast 10 mg tablet 10 mg PO QDAY asthma #30 tabs 01/30/25 albuterol sulfate 90 mcg/actuation 2 puff inhalation QID PRN 06/02/25 aerosol inhaler shortness of breath or wheezing #8.5 grams albuterol sulfate 90 mcg/actuation 2 puff inhalation QID PRN 06/02/25 aerosol inhaler shortness of breath or wheezing #8.5 grams loratadine 10 mg tablet (Claritin) 10 mg PO QDAY #30 tabs 06/02/25 loratadine 10 mg tablet (Claritin) 10 mg PO QDAY PRN allergy symptoms 06/02/25 #30 tabs prednisone 20 mg tablet 40 mg (2 x 20 mg) PO QDAY 4 days 06/02/25 #8 tabs prednisone 20 mg tablet 40 mg (2 x 20 mg) PO QDAY 4 days 06/02/25 #8 tabs Allergies Allergy/AdvReac Type Severity Reaction Status Date / Time No Known Drug Allergies Allergy Verified 06/02/25 07:59 Review of Systems Review of Systems Systems Reviewed: All systems reviewed, normal except as documented Past Medical History Past Medical History NEUROLOGIC: Negative Neurological Disorders or Seizures CARDIAC: Negative Cardiac Disorders or Congestive Heart Failure RESPIRATORY: Positive Asthma; Negative Chronic Obstructive Pulmonary Disease (COPD) GASTROINTESTINAL: Negative Gastrointestinal Disorders or Hepatitis GENITOURINARY: Positive Genitourinary Disorders, Kidney Stones and Inguinal Hernia; Negative Renal Disease, Polycystic Kidney Disease, Neurogenic Bladder, Dialysis or Benign Prostatic Hyperplasia MUSCULOSKELETAL: Positive Fractures; Negative Musculoskeletal Disorders or Arthritis ENDOCRINE: Negative Endocrine Disorders, Diabetes Mellitus Type 1 or Diabetes Mellitus Type 2 HEMATOLOGIC: Negative Blood Disorders OTHER HISTORY: Negative Hospitalization, Autoimmune Disease, Shingles, Falls, Blood Transfusions, Blood Transfusion Reaction, Anesthesia Reactions, MRSA or Cancer Family History FAMILY HISTORY: Positive Family Cardiac Disorders and Family Cancer; Negative Family Psychiatric Problems, Family Respiratory Disorders, Family Gastrointestinal Problems, Family Surgery or Family Anesthesia Reaction Surgical History SURGICAL: Negative Cardiac Surgery, Endocrine Surgery, Ear Surgery, Abdominal Surgery, Joint Replacement or Neurologic Surgery Social History SMOKING STATUS: Never smoker SUBSTANCE USE: does not use ALCOHOL: Never ED Exam Narrative Physical exam: VITAL SIGNS: Reviewed. GENERAL APPEARANCE: Alert and interactive, follows commands, no acute distress, HEAD AND FACE: Non-traumatic. ENT: PERRL, conjuctiva pink and clear, eyelid no trauma, Mucous membrane moist. NECK: Supple, nontender, no nuchal rigidity. CHEST: No tenderness, no crepitus, no paradoxical movement, no retractions. LUNGS: wheezing throughout HEART: Regular rate, regular rhythm ABDOMEN: Soft, nondistended, no guarding, nontender, no rebound, no masses, NEUROLOGICAL: Gross motor function intact sensory function intact, Appropriate for age. MUSCULOSKELETAL: low back nontender, full range of motion. EXTREMITIES: No redness no swelling no skin breakdown on bilateral foot and leg. Distal neurovascular status intact bilateral foot SKIN: Color pink, dry, no rash, no lacerations, no abrasions, no contusions. psychiatric: anxious, poor eye contact Course Orders Category Date Time Status EKG (ED ONLY) *Do not use* NOW Care 06/02/25 08:09 Completed EKG (ED ONLY) *Do not use* NOW Care 06/02/25 08:14 Completed EKG (ED Only) Stat Exams 06/02/25 08:09 Draft EKG (ED Only) Stat Exams 06/02/25 08:14 Ordered XR chest 1V Stat Exams 06/02/25 08:12 Completed BNP [B-Type Natriuretic Peptide] Stat Lab 06/02/25 08:41 Completed CBC Stat Lab 06/02/25 08:41 Completed Comprehensive Metabolic Panel Stat Lab 06/02/25 08:41 Completed Troponin I Stat Lab 06/02/25 08:41 Completed ALBUTEROL RT 3ml [Proventil Rt 3ml] Med 06/02/25 08:12 Discontinued 5 mg INH X1 ONE Albuterol/Ipratr Rt Alexandra [Duoneb Rt Alexandra] Med 06/02/25 09:43 Discontinued 3 ml INH X1 ONE predniSONE Med 06/02/25 09:43 Discontinued 40 mg PO X1 ONE Vital Signs Vital signs: Vital Signs Temperature 98.0 F 06/02/25 08:02 Pulse Rate 100 06/02/25 08:02 Respiratory Rate 24 H 06/02/25 08:02 Blood Pressure 203/135 H 06/02/25 08:02 Pulse Oximetry (%) 96 06/02/25 08:02 Oxygen Delivery Method Nasal Cannula 06/02/25 08:02 Oxygen Flow Rate 3 06/02/25 08:02 Shortness of Breath / Dyspnea MDM Narrative MDM Narrative:: Patient feels better after breathing treatment. Patient given a total of 3 breathing treatments. Patient was anxious upon arrival but now feels better. I did talk to patient at length. I told him that his creatinine was elevated. Patient states he has been told this before. I told him he needs to get have this rechecked with his primary provider. Patient's blood pressure was elevated upon arrival it could have been because he was anxious but I wanted to make sure that he gets this rechecked with his primary. Will send patient home with an inhaler and steroids. Chest x-ray unremarkable. Will treat for reactive airway disease. Medications / Prescriptions Medication administrations:: Medication Administration History Discontinued Medications Albuterol (Albuterol Rt 2.5 Mg/3 Ml Nebu) 5 mg INH X1 ONE Stop: 06/02/25 08:13 Last Admin: 06/02/25 08:43 Dose: 5 mg Documented By: CHEO Albuterol/Ipratropium (Albuterol/Ipratropium (Duoneb) Rt Alexandra 3 Ml Nebu) 3 ml INH X1 ONE Stop: 06/02/25 09:44 Last Admin: 06/02/25 10:45 Dose: 3 ml Documented By: CHEO Prednisone (Prednisone 20 Mg Tablet) 40 mg PO X1 ONE Stop: 06/02/25 09:44 Last Admin: 06/02/25 10:35 Dose: 40 mg Documented By: DO Discharge Plan Plan Patient Disposition: HOME (Self Care) Patient condition on transfer: Stable Prescriptions/Referrals Prescriptions/Med Rec: New albuterol sulfate 90 mcg/actuation HFA aerosol inhaler 2 puff inhalation QID PRN (Reason: shortness of breath or wheezing) Qty: 8.5 0RF prednisone 20 mg tablet 40 mg PO QDAY 4 Days Qty: 8 0RF loratadine [Claritin] 10 mg tablet 10 mg PO QDAY Qty: 30 0RF prednisone 20 mg tablet 40 mg PO QDAY 4 Days Qty: 8 0RF albuterol sulfate 90 mcg/actuation HFA aerosol inhaler 2 puff inhalation QID PRN (Reason: shortness of breath or wheezing) Qty: 8.5 0RF loratadine [Claritin] 10 mg tablet 10 mg PO QDAY PRN (Reason: allergy symptoms) Qty: 30 0RF No Action albuterol sulfate 90 mcg/actuation aerosol powdr breath activated 1 inh inhalation QID PRN (Reason: Wheezing or shortness of breath) Qty: 1 6RF albuterol sulfate 1.25 mg/3 mL solution for nebulization 1.25 mg inhalation QID PRN (Reason: Wheezing/SOB) Qty: 90 2RF hydrocortisone [Anti-Itch (HC)] 1 % cream 1 applic topical QDAY PRN (Reason: skin irritation) Qty: 28.35 0RF (DME) nebulizers Misc See Rx Instructions .Route Qty: 1 0RF Rx Instructions: Use QID and PRN with Albuterol As directed indomethacin 25 mg capsule 25 mg PO BID Qty: 10 0RF Rx Instructions: administer with food or milk gabapentin 100 mg capsule 100 mg PO QHS Qty: 7 0RF montelukast 10 mg tablet 10 mg PO QDAY MDD 10 mg Qty: 30 1RF budesonide-formoterol [Symbicort] 160-4.5 mcg/actuation HFA aerosol inhaler 2 puff inhalation BID 30 Days Qty: 10.2 1RF albuterol sulfate 2.5 mg /3 mL (0.083 %) solution for nebulization 2.5 mg inhalation Q4H PRN (Reason: shortness of breath or wheezing) Qty: 90 0RF albuterol sulfate 90 mcg/actuation HFA aerosol inhaler 2 inh inhalation Q4H PRN (Reason: shortness of breath or wheezing) Qty: 8.5 0RF Rx Instructions: With AeroChamber and mask for pediatric use Referrals: Dayna Melara MD [Primary Care Provider] - In 1 week Problem List Clinical Impression: RAD (reactive airway disease), Elevated serum creatinine Patient/Caregiver Discharge Instructions Discharge Activity: activity as tolerated Education Materials: ED Inhaler Use, Asthma Additional Instructions: Follow up with primary provider in 1-2 days. Come back to ED if symptoms change or worsen Print Language: Finnish Stand Alone Forms: Anne Award Info., Patient Portal Info Letter PA/STICK FEEDER Supervising Physician PA/STICK FEEDER Supervising Physician: bruce
[2025-06-02 08:40] VITALS: PULSE 88; RESP 20; O2SAT 97
[2025-06-02 08:43] VITALS: PULSE 88
[2025-06-02] MEDS: ALBUTEROL RT 2.5 MG/3 ML NEBU 5 MG INH (08:43)
[2025-06-02 09:15] LABS: B-Type Natriuretic Peptide < 20 pg/mL (0-100)
[2025-06-02 09:17] LABS: Alanine Aminotransferase 50 U/L (10-49); Albumin, Serum 4.3 gm/dL (3.5-5.0); Albumin/Globulin Ratio 1.7 (1.2-2.2); Alkaline Phosphatase 101 U/L (46-116); Anion Gap 10 (7-16); Aspartate Amino Transferase 49 U/L (0-34); BUN/Creatinine Ratio 11 Ratio (12-20); Bilirubin,Total 0.5 mg/dL (0.3-1.2); Blood Urea Nitrogen 16 mg/dL (9-23); Calcium 8.7 mg/dL (8.3-10.6); Calcium (Corrected) 8.7 mg/dL (8.5-10.1); Carbon Dioxide 25.9 mMol/L (20.0-31.0); Chloride 107 mMol/L (98-107); Creatinine (Component) 1.4 mg/dL (0.6-1.3); Globulin 2.5 gm/dL (2.3-3.5); Glucose 105 mg/dL (74-106); Osmolality,Calculated 286 (275-295); Potassium 4.2 mMol/L (3.4-5.1); Sodium 143 mMol/L (136-145); Total Protein 6.8 gm/dL (5.7-8.2); Troponin I < 0.020 ng/mL (0.0-0.045); eGFR 59 See Note
[2025-06-02 09:18] LABS: Basophils # (Auto) 0.1 Thou/mm3 (0.0-0.2); Basophils % (Auto) 2 % (0-2.5); Eosinophils # (Auto) 0.9 Thou/mm3 (0.0-0.5); Eosinophils % (Auto) 13 % (0-10); Hematocrit 48.4 % (41.0-53.0); Hemoglobin 16.2 g/dL (13.5-16.0); Immature Granulocytes Auto 0.01 Thou/mm3 (0.00-0.00); Lymphocytes # (Auto) 1.5 Thou/mm3 (1.0-4.8); Lymphocytes % (Auto) 23 % (10-50); Mean Corpuscular HGB Conc 33.5 g/dl (31.0-37.0); Mean Corpuscular Hemoglobin 29.2 pg (25.0-35.0); Mean Corpuscular Volume 87 fL (80-100); Monocytes # (Auto) 0.5 Thou/mm3 (0.0-0.8); Monocytes % (Auto) 8 % (0-12); Neutrophils # (Auto) 3.5 Thou/mm3 (1.8-7.7); Neutrophils % (Auto) 54 % (37-80); Nucleated Red Blood Cell # 0.00 Thou/mm3 (0.00-0.00); Nucleated Red Blood Cell % 0 /100 WBC (0); Platelet Count 267 Thou/mm3 (140-440); RDW Standard Deviation 41.7 fL (35.1-43.9); Red Blood Count 5.54 Miln/mm3 (4.50-5.90); White Blood Count 6.5 Thou/mm3 (3.8-10.6)
[2025-06-02 09:59] VITALS: BP 148/91; PULSE 89; RESP 18; TEMP 36.6; O2SAT 94
[2025-06-02 10:45] VITALS: PULSE 85; RESP 20; O2SAT 97
[2025-06-02] MEDS: ALBUTEROL/IPRATROPIUM (Duoneb) RT SOL 3 ML NEBU INH (10:45)
[2025-06-02 12:15] VITALS: BP 126/85; PULSE 80; RESP 18; O2SAT 95
== END 2025-06-02 12:15 | disposition home or self-care (01) ==
PROVIDERS: Nurse Practitioner Family; Emergency Provider Emergency Medicine; PCP Internal Medicine
DX: J45.909 Unspecified asthma, uncomplicated (principal); R79.89 Other specified abnormal findings of blood chemistry; R94.31 Abnormal electrocardiogram [ECG] [EKG]
CPT/HCPCS: 36415; 71045; 80053; 83880; 84484; 85025; 93005; 94640; 99284; A9270; J7512

== ENCOUNTER 2025-07-29 19:24 | Inpatient (IN) | payer MEDICAID, SELFPAY ==
[2025-07-29] VITALS (12 sets, daily range): BP systolic 127–179; BP diastolic 80–148; PULSE 105–118; RESP 18–43; TEMP 36.4–37; O2SAT 86–98
--- NOTE | 2025-07-29 19:30 | EKG_ITS ---
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
--- NOTE | 2025-07-29 19:30 | XR_ITS ---
Examination: AP chest single view Technique one AP portable semiupright chest single view Date and time: July 29, 2025, 1934 hrs., Comparison June 02, 2025 Indications: Shortness of breath chest pain today Findings: Normal heart size. No pneumonia or pulmonary edema. The osseous structures are intact Impression: No active disease.
[2025-07-29] MEDS: MethylPREDNISolone SOD SUCC 62.5 MG/ML 2ML VIAL 125 MG IVP (19:37)
[2025-07-29] MEDS: Magnesium Sulfate 4 GM Ivpb 4 GM/50 ML BAG IV (19:37)
[2025-07-29] MEDS: cefTRIAXone/D5w 1gm IV premix 1 GM/50 ML BAG IV (19:50)
--- NOTE | 2025-07-29 19:53 | PD.EDADULT ---
ED General RME/HPI General Chief complaint: Shortness of Breath/Dyspnea Stated complaint: SOB, CHEST PAIN Time Seen by Provider: 07/29/25 19:30 Arrival date/time: 07/29/25 19:24 CC: Shortness of breath and chest pain HPI onset this morning with progressive increase in severity the patient has a significant history for asthma attack review of the medical record show the last 1 was in January of this year. Patient is tachypneic tachycardic short of breath with oxygen saturations at 86 to 88% on room air. Patient is noted to be tripoding. Patient is speaking in 1-2 word sentences Related Data Previous Rx's ?Medication ?Instructions ?Recorded albuterol sulfate 90 mcg/actuation 1 inh inhalation QID PRN Wheezing 04/10/24 breath activated powder inhaler or shortness of breath #1 ea hydrocortisone 1 % topical cream 1 applic topical QDAY PRN skin 06/22/24 (Anti-Itch (hydrocortisone)) irritation #28.35 grams nebulizers #1 ea 08/07/24 gabapentin 100 mg capsule 100 mg PO QHS #7 caps 10/05/24 indomethacin 25 mg capsule 25 mg PO BID #10 caps 10/05/24 albuterol sulfate 1.25 mg/3 mL 1.25 mg (3 mL) inhalation QID PRN 01/10/25 solution for nebulization Wheezing/SOB #90 mL albuterol sulfate 2.5 mg/3 mL 2.5 mg (3 mL) inhalation Q4H PRN 01/13/25 (0.083 %) solution for nebulization shortness of breath or wheezing #90 mL albuterol sulfate 90 mcg/actuation 2 inh inhalation Q4H PRN shortness 01/13/25 aerosol inhaler of breath or wheezing #8.5 grams budesonide-formoterol HFA 160 2 puff inhalation BID 1 month 01/30/25 mcg-4.5 mcg/actuation aerosol #10.2 grams inhaler (Symbicort) montelukast 10 mg tablet 10 mg PO QDAY asthma #30 tabs 01/30/25 albuterol sulfate 90 mcg/actuation 2 puff inhalation QID PRN 06/02/25 aerosol inhaler shortness of breath or wheezing #8.5 grams albuterol sulfate 90 mcg/actuation 2 puff inhalation QID PRN 06/02/25 aerosol inhaler shortness of breath or wheezing #8.5 grams loratadine 10 mg tablet (Claritin) 10 mg PO QDAY #30 tabs 06/02/25 loratadine 10 mg tablet (Claritin) 10 mg PO QDAY PRN allergy symptoms 06/02/25 #30 tabs Allergies Allergy/AdvReac Type Severity Reaction Status Date / Time No Known Drug Allergies Allergy Verified 07/29/25 19:25 Review of Systems Review of Systems Narrative Review of Systems: GEN: No fever, no chills, no weight loss EYES: No discharge, no visual changes, no pain HEENT: No ear pain, no congestion, no sore throat PULM: + shortness of breath,+ wheezing, no cough, no congestion CV: + chest pain, no dyspnea on exertion, no palpitations GI: No nausea, no vomiting, no diarrhea, no pain, no constipation : No frequency, no urgency, no dysuria MUSC/SKEL: No joint pain, no back pain SKIN: No rash PSYCH: No hallucinations, no depression HEME/LYMPH: No easy bleeding or bruising tendencies NEURO: No weakness, no headache Past Medical History Past Medical History NEUROLOGIC: Negative Neurological Disorders or Seizures CARDIAC: Negative Cardiac Disorders or Congestive Heart Failure RESPIRATORY: Positive Asthma; Negative Chronic Obstructive Pulmonary Disease (COPD) GASTROINTESTINAL: Negative Gastrointestinal Disorders or Hepatitis GENITOURINARY: Positive Genitourinary Disorders, Kidney Stones and Inguinal Hernia; Negative Renal Disease, Polycystic Kidney Disease, Neurogenic Bladder, Dialysis or Benign Prostatic Hyperplasia MUSCULOSKELETAL: Positive Fractures; Negative Musculoskeletal Disorders or Arthritis ENDOCRINE: Negative Endocrine Disorders, Diabetes Mellitus Type 1 or Diabetes Mellitus Type 2 HEMATOLOGIC: Negative Blood Disorders OTHER HISTORY: Negative Hospitalization, Autoimmune Disease, Shingles, Falls, Blood Transfusions, Blood Transfusion Reaction, Anesthesia Reactions, MRSA or Cancer Family History FAMILY HISTORY: Positive Family Cardiac Disorders and Family Cancer; Negative Family Psychiatric Problems, Family Respiratory Disorders, Family Gastrointestinal Problems, Family Surgery or Family Anesthesia Reaction Surgical History SURGICAL: Negative Cardiac Surgery, Endocrine Surgery, Ear Surgery, Abdominal Surgery, Joint Replacement or Neurologic Surgery Social History SMOKING STATUS: Never smoker SUBSTANCE USE: does not use ED Exam Narrative Physical exam: [General: In respiratory distress, but not in any acute distress Head normocephalic HEENT: Within acceptable limits Neck is supple nontender Chest equal chest rise nontender to palpation Respiratory: Tachypneic, wheezing in the upper lobes significantly diminished in the lower lobes. CV: Rate rhythm is regular , tachycardic. Abdomen soft nontender no masses positive bowel sounds all 4 quadrants Back: No CVA tenderness no spinous process tenderness from cervical spine thoracic and lumbar spine Skin: Intact no petechiae rash induration ulceration or crepitus Extremities: Moving all extremity against resistance cap refill less than 2 seconds neurosensory intact. No lower extremity edema. Neuro: Awake alert oriented x3 Glascow coma 15 no focal deficits] Course Course Course Narrative: Reassessment of this patient at 2040, the patient's heart rate is down in the low 100s, patient is speaking in full sentences oxygen saturations 99% on continued nonrebreather respiratory rate is down into the low 20s. Patient is much more relaxed and conversing normally. Patient admits that this was a spontaneous outbreak he does not get it when he typically works out with weights. Patient state he slept with the night before after shower with a fan on and developed a sore throat in the morning his asthma started. Reexamination of the patient at 2199, the patient is awake alert oriented smiling speaking in 4-5 word sentences without complication however the patient's oxygen saturation are decreasing to 88% on room air and heart rate remains in the 110s to 120s. At this times patient case discussed with Dr. Palomo resident for Dr. Vallecillo, who agrees to accept the patient for admission for asthma exacerbation and hypoxemia. Patient is in agreement with this plan Quality Measures none Orders Category Date Time Status EKG (ED ONLY) *Do not use* NOW Care 07/29/25 19:30 Completed SVN NOW Care 07/29/25 19:30 Active EKG (ED Only) Stat Exams 07/29/25 19:30 Draft XR chest 1V Stat Exams 07/29/25 19:30 Completed B-Type Natriuretic Peptide Stat Lab 07/29/25 19:45 Completed CBC Stat Lab 07/29/25 19:45 Completed Comprehensive Metabolic Panel Stat Lab 07/29/25 19:45 Completed Drug Screen,Urine Stat Lab 07/29/25 19:30 Ordered LDH (Lactate Dehydrogenase) Stat Lab 07/29/25 19:45 Completed Magnesium Stat Lab 07/29/25 19:45 Completed Partial Thromboplastin Time Stat Lab 07/29/25 19:45 Completed Prothrombin Time with INR Stat Lab 07/29/25 19:45 Completed Troponin I Stat Lab 07/29/25 19:45 Completed Urinalysis, C/S if Indicated Stat Lab 07/29/25 19:30 Ordered ALBUTEROL RT 0.5ml [Proventil Rt 0.5ml] Med 07/29/25 19:56 Discontinued 10 mg INH X1 ONE ALBUTEROL RT 0.5ml [Proventil Rt 0.5ml] Med 07/29/25 20:50 Discontinued 10 mg INH X1 ONE ALBUTEROL RT 0.5ml [Proventil Rt 0.5ml] Med 07/29/25 19:44 Discontinued 2.5 mg .ROUTE .STK-MED ONE ALBUTEROL RT 3ml [Proventil Rt 3ml] Med 07/29/25 19:41 Discontinued 2.5 mg .ROUTE .STK-MED ONE ALBUTEROL RT 5 ml [Proventil Rt 5 ml] Med 07/29/25 19:30 Discontinued 10 mg INH X1 ONE Magnesium Sulfate 4 GM Ivpb [Magnesium Sulfate Ivpb] Med 07/29/25 19:33 Active 4 gm in 50 ml IV X1 MethylPREDNISolone.* [SoluMEDROL Inj] Med 07/29/25 19:34 Discontinued 125 mg IVP X1 ONE Sodium Chloride Rt Alexandra 0.9% [NS Rt Alexandra 0.9%] Med 07/29/25 20:50 Active 3 ml INH PRN PRN cefTRIAXone/D5w 1gm IV premix [Rocephin/D5w 1gm IV Med 07/29/25 19:39 Discontinued premix] 1 gm in 50 ml IV X1 Vital Signs Vital signs: Vital Signs Temperature 97.5 F 07/29/25 19:27 Pulse Rate 108 H 07/29/25 19:27 Respiratory Rate 18 07/29/25 19:27 Blood Pressure 179/96 H 07/29/25 19:27 Pulse Oximetry (%) 98 07/29/25 19:27 Oxygen Delivery Method Room Air 07/29/25 19:27 Discharge Plan Plan Patient Disposition: Other Care w/in Hosp ([facility]) Prescriptions/Referrals Prescriptions/Med Rec: No Action albuterol sulfate 90 mcg/actuation aerosol powdr breath activated 1 inh inhalation QID PRN (Reason: Wheezing or shortness of breath) Qty: 1 6RF albuterol sulfate 1.25 mg/3 mL solution for nebulization 1.25 mg inhalation QID PRN (Reason: Wheezing/SOB) Qty: 90 2RF hydrocortisone [Anti-Itch (HC)] 1 % cream 1 applic topical QDAY PRN (Reason: skin irritation) Qty: 28.35 0RF (DME) nebulizers [facility] [place] See Rx Instructions .Route Qty: 1 0RF Rx Instructions: Use QID and PRN with Albuterol As directed indomethacin 25 mg capsule 25 mg PO BID Qty: 10 0RF Rx Instructions: administer with food or milk gabapentin 100 mg capsule 100 mg PO QHS Qty: 7 0RF montelukast 10 mg tablet 10 mg PO QDAY MDD 10 mg Qty: 30 1RF budesonide-formoterol [Symbicort] 160-4.5 mcg/actuation HFA aerosol inhaler 2 puff inhalation BID 30 Days Qty: 10.2 1RF albuterol sulfate 2.5 mg /3 mL (0.083 %) solution for nebulization 2.5 mg inhalation Q4H PRN (Reason: shortness of breath or wheezing) Qty: 90 0RF albuterol sulfate 90 mcg/actuation HFA aerosol inhaler 2 inh inhalation Q4H PRN (Reason: shortness of breath or wheezing) Qty: 8.5 0RF Rx Instructions: With AeroChamber and mask for pediatric use albuterol sulfate 90 mcg/actuation HFA aerosol inhaler 2 puff inhalation QID PRN (Reason: shortness of breath or wheezing) Qty: 8.5 0RF loratadine [Claritin] 10 mg tablet 10 mg PO QDAY Qty: 30 0RF albuterol sulfate 90 mcg/actuation HFA aerosol inhaler 2 puff inhalation QID PRN (Reason: shortness of breath or wheezing) Qty: 8.5 0RF loratadine [Claritin] 10 mg tablet 10 mg PO QDAY PRN (Reason: allergy symptoms) Qty: 30 0RF Referrals: Zoran Miller MD [Primary Care Provider] - In 1 week Problem List Clinical Impression: Asthma with acute exacerbation, Hypoxia Patient/Caregiver Discharge Instructions Print Language: Nigerian Stand Alone Forms: Anne Award Info., Patient Portal Info Letter PA/LUNCH COUNTER MANAGER Supervising Physician PA/LUNCH COUNTER MANAGER Supervising Physician: Rubin SOUSA Clinical Information Provided by patient Medical Records Reviewed [facility] Meds/Rx Considered, not Ordered None Labs/Rad/Tests considered, not Ordered None Chronic Illness/Social Conditions Add or document further as needed: Asthma EKG EKG Interpretation narrative: EKG performed at 1946 shows a ventricular rate of 111 [place] interval 136 QRS of 85 QTc of 384 sinus tachycardia however there is a baseline wander secondary to the respiratory effort. No significant ST segment depressions or elevations noted. Lab Interpretation Lab(s) interpretation(s): CBC shows a mild leukocytosis of 11.8, H&H of 16.5 and 50.4 respectively no thrombocytopenia Coags within acceptable limits Sodium 146 potassium of 4.2 chloride 108 creatinine of 1.4 no other significant electrolyte imbalances no renal impairment transaminitis or T. bili elevation. Troponin and BNP are negative. Imaging Provider imaging interpretation(s): Chest x-ray as interpreted by me read by radiology as negative for any acute finding. Medication Administration(s) Medication Administration History Magnesium Sulfate (Magnesium Sulfate Ivpb) 4 gm in 50 mls @ 12.5 mls/hr IV X1 ONE Stop: 07/29/25 23:32 Last Infusion: 07/29/25 20:28 Dose: Infused Documented By: Admin: 07/29/25 19:37 Dose: 12.5 mls/hr Documented By: AC Sodium Chloride (Sodium Chloride Rt Alexandra 0.9% 3 Ml Nebu) 3 ml INH PRN PRN PRN Reason: SOLN Stop: 08/28/25 20:49 Discontinued Medications Albuterol (Albuterol Rt 25 Mg/5 Ml Nebu) 10 mg INH X1 ONE Stop: 07/29/25 19:31 Last Admin: 07/29/25 19:56 Dose: 10 mg Documented By: EMR Comments: not given Albuterol (Albuterol Rt 2.5 Mg/3 Ml Nebu) Confirm Administered Dose 2.5 mg .ROUTE .STK-MED ONE Stop: 07/29/25 19:42 Last Admin: 07/29/25 20:03 Dose: Not Given Documented By: EMR Non-Admin Reason: Duplicate Medication on eMAR Albuterol (Albuterol Rt 2.5 Mg/0.5 Ml Nebu) Confirm Administered Dose 2.5 mg .ROUTE .STK-MED ONE Stop: 07/29/25 19:45 Last Admin: 07/29/25 20:03 Dose: Not Given Documented By: EMR Non-Admin Reason: Duplicate Medication on eMAR Albuterol (Albuterol Rt 2.5 Mg/0.5 Ml Nebu) 10 mg INH X1 ONE Stop: 07/29/25 19:57 Last Admin: 07/29/25 20:02 Dose: 10 mg Documented By: EMR Albuterol (Albuterol Rt 2.5 Mg/0.5 Ml Nebu) 10 mg INH X1 ONE Stop: 07/29/25 20:51 Last Admin: 07/29/25 20:57 Dose: 10 mg Documented By: JOE Ceftriaxone Sodium/Dextrose (Rocephin/D5w 1gm Iv Premix) 1 gm in 50 mls @ 100 mls/hr IV X1 ONE Stop: 07/29/25 20:08 Last Infusion: 07/29/25 20:29 Dose: Infused Documented By: Admin: 07/29/25 19:50 Dose: 100 mls/hr Documented By: ALEXSANDRA Methylprednisolone Sodium Succinate (Methylprednisolone Sod Succ 62.5 Mg/Ml 2ml Vial) 125 mg IVP X1 ONE Stop: 07/29/25 19:35 Last Admin: 07/29/25 19:37 Dose: 125 mg Documented By: NAOMI Diagnosis Differential diagnosis: Asthma exacerbation ACS HI
[2025-07-29] MEDS: ALBUTEROL RT 10 MG INH (19:56)
[2025-07-29 20:02] LABS: Basophils # (Auto) 0.1 Thou/mm3 (0.0-0.2); Basophils % (Auto) 1 % (0-2.5); Eosinophils # (Auto) 0.5 Thou/mm3 (0.0-0.5); Eosinophils % (Auto) 5 % (0-10); Hematocrit 50.4 % (41.0-53.0); Hemoglobin 16.5 g/dL (13.5-16.0); Immature Granulocytes Auto 0.04 Thou/mm3 (0.00-0.00); Lymphocytes # (Auto) 1.8 Thou/mm3 (1.0-4.8); Lymphocytes % (Auto) 15 % (10-50); Mean Corpuscular HGB Conc 32.7 g/dl (31.0-37.0); Mean Corpuscular Hemoglobin 28.2 pg (25.0-35.0); Mean Corpuscular Volume 86 fL (80-100); Monocytes # (Auto) 1.1 Thou/mm3 (0.0-0.8); Monocytes % (Auto) 10 % (0-12); Neutrophils # (Auto) 8.2 Thou/mm3 (1.8-7.7); Neutrophils % (Auto) 70 % (37-80); Nucleated Red Blood Cell # 0.00 Thou/mm3 (0.00-0.00); Nucleated Red Blood Cell % 0 /100 WBC (0); Platelet Count 277 Thou/mm3 (140-440); RDW Standard Deviation 42.6 fL (35.1-43.9); Red Blood Count 5.86 Miln/mm3 (4.50-5.90); White Blood Count 11.8 Thou/mm3 (3.8-10.6)
[2025-07-29] MEDS: ALBUTEROL RT 2.5 MG/0.5 ML NEBU 10 MG INH ×2 (20:02→20:57)
[2025-07-29 20:15] LABS: INR 1.0 (0.9-1.3); Partial Thromboplastin Time 25.4 Seconds (22.0-36.0); Prothrombin Time 11.4 Seconds (9.0-12.2)
[2025-07-29 20:16] LABS: Alanine Aminotransferase 24 U/L (10-49); Albumin, Serum 4.5 gm/dL (3.5-5.0); Albumin/Globulin Ratio 1.9 (1.2-2.2); Alkaline Phosphatase 111 U/L (46-116); Anion Gap 11 (7-16); Aspartate Amino Transferase 24 U/L (0-34); BUN/Creatinine Ratio 13 Ratio (12-20); Bilirubin,Total 0.8 mg/dL (0.3-1.2); Blood Urea Nitrogen 18 mg/dL (9-23); Calcium 9.5 mg/dL (8.3-10.6); Calcium (Corrected) 9.5 mg/dL (8.5-10.1); Carbon Dioxide 27.1 mMol/L (20.0-31.0); Chloride 108 mMol/L (98-107); Creatinine (Component) 1.4 mg/dL (0.6-1.3); Globulin 2.4 gm/dL (2.3-3.5); Glucose 103 mg/dL (74-106); LDH (Lactate Dehydrogenase) 231 U/L (120-246); Magnesium 2.2 mg/dL (1.6-2.6); Osmolality,Calculated 292 (275-295); Potassium 4.2 mMol/L (3.4-5.1); Sodium 146 mMol/L (136-145); Total Protein 6.9 gm/dL (5.7-8.2); Troponin I < 0.020 ng/mL (0.0-0.045); eGFR 59 See Note
[2025-07-29 20:30] LABS: B-Type Natriuretic Peptide < 20 pg/mL (0-100)
[2025-07-29] MEDS: ALBUTEROL/IPRATROPIUM (Duoneb) RT SOL 3 ML NEBU INH (23:29)
--- NOTE | 2025-07-29 23:44 | PD.RESHP ---
Documentation for date of: 07/29/25 [facility] History of Present Illness Chief complaint: Shortness of breath and chest pressure History of present illness: 54M with history of severe persistent asthma presenting with acute shortness of breath, chest pressure, and hypoxemia (sat 86?88% RA, tachypneic to 45?50), admitted for asthma exacerbation with acute hypoxemic respiratory failure. Patient was in his usual state of health until the morning of 07/29/25 when he developed cough and mild sore throat after sleeping with a fan on. In the afternoon, he developed progressive shortness of breath and substernal chest pressure, prompting ED presentation. On arrival, patient was tachypneic (RR 45?50), tachycardic (~110?120s), tripoding, speaking in 1?2 word sentences, and hypoxemic to 86?88% on RA. Exam showed severe bilateral wheezing with diminished breath sounds at bases. He was placed on a nonrebreather with improvement (sat 99%, speaking full sentences), but when trialed off O2, desaturated again to 87% RA, prompting admission. Patient reports prior similar exacerbations, most recently in January 2025. He has been prescribed Symbicort and montelukast in the past but has not picked them up and currently only uses albuterol inhaler PRN. He has had multiple courses of prednisone in the past year. No fevers, chills, sputum, hemoptysis, or chest pain other than pressure. No palpitations, syncope, or edema. 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 ED Course: On arrival he was tachypneic to 45?50, tachycardic to 110?120s, tripoding, speaking in 1?2 word sentences, and hypoxemic with O2 saturation 86?88% on room air. Exam notable for diffuse wheezing and diminished breath sounds at the bases. He was placed on a non-rebreather mask with improvement in oxygenation (sats 99%) and symptoms, but desaturated again to 87% when trialed off O2. Labs were notable for WBC 11.8 (reactive), Hgb 16.5 (likely secondary erythrocytosis), and mild JUAN (Cr 1.4 from baseline 1.1). Troponin and BNP were negative, COVID negative, and CXR showed no acute disease. EKG demonstrated sinus tachycardia at 111 bpm. He was treated with nebulized bronchodilators and IV steroids with clinical improvement, but given persistent hypoxemia off O2, the patient was admitted for further management. ROS GEN: No fever, chills, or weight loss. EYES: No pain, no discharge. HEENT: Mild sore throat, no congestion. PULM: + SOB, + wheezing, + cough. CV: + chest pressure, no palpitations or syncope. GI: No nausea, vomiting, abdominal pain. : No dysuria or hematuria. NEURO: No headache, weakness, or focal deficits. PSYCH: No depression or anxiety. 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 HEENT: MMM, no lesions. Neck: Supple, no JVD. CV: Tachycardic, regular rhythm, no murmurs. Resp: Tachypneic; severe bilateral wheezing with diminished air entry at bases. No rales. Abd: Soft, NTND, BS+. Ext: No edema, pulses intact, cap refill <2s. Skin: Warm, intact. Neuro: AOx3, no focal deficits. Results: Labs 07/29/25 19:45 07/29/25 19:45 Labs: Short CBC 07/29/25 Range/Units 19:45 WBC 11.8 H (3.8-10.6) Thou/mm3 Hgb 16.5 H (13.5-16.0) g/dL Hct 50.4 (41.0-53.0) % Plt Count 277 (140-440) Thou/mm3 BMP 07/29/25 19:45 Sodium 146 H Potassium 4.2 Chloride 108 H Carbon Dioxide 27.1 BUN 18 Creatinine 1.4 H Glucose 103 Calcium 9.5 Cardiac Enzymes 07/29/25 Range/Units 19:45 Troponin I < 0.020 (0.0-0.045) ng/mL Liver Function 07/29/25 Range/Units 19:45 Total Bilirubin 0.8 (0.3-1.2) mg/dL AST 24 (0-34) U/L ALT 24 (10-49) U/L Alkaline Phosphatase 111 (46-116) U/L Albumin 4.5 (3.5-5.0) gm/dL Quality Measures Quality Measures VTE prophylaxis Medications Home Medications and Allergies Allergies Allergy/AdvReac Type Severity Reaction Status Date / Time No Known Drug Allergies Allergy Verified 07/29/25 19:25 Visit Medications Acetaminophen (Acetaminophen 325 Mg Tablet) 650 mg PO Q6H PRN PRN Reason: Fever >100.4 Stop: 08/28/25 23:10 Albuterol (Albuterol Rt 2.5 Mg/3 Ml Nebu) 2.5 mg INH Q2H PRN PRN Reason: sob or wheezing Stop: 08/28/25 22:59 Albuterol/Ipratropium (Albuterol/Ipratropium (Duoneb) Rt Alexandra 3 Ml Nebu) 3 ml INH Q4HRRT [facility] Stop: 08/28/25 22:59 Last Admin: 07/29/25 23:29 Dose: 3 ml Enoxaparin Sodium (Enoxaparin Sod Inj 40 Mg/0.4 Ml Syringe) 40 mg SC QDAY [facility] Stop: 08/13/25 08:59 Famotidine (Famotidine 20 Mg Tablet) 20 mg PO BID [facility] Stop: 08/29/25 08:59 Sodium Chloride (Ns) 1,000 mls @ 75 mls/hr IV .[id number] [facility] Stop: 08/28/25 23:14 Ondansetron HCl (Ondansetron Inj 2 Mg/Ml Inj 2 Ml) 4 mg IVP Q6H PRN; Protocol PRN Reason: NAUSEA OR VOMITING Stop: 08/28/25 23:10 Prednisone (Prednisone 20 Mg Tablet) 40 mg PO QDAY ROCIO Stop: 08/05/25 23:03 Sodium Chloride (Sodium Chloride Rt Alexandra 0.9% 3 Ml Nebu) 3 ml INH PRN PRN PRN Reason: SOLN Stop: 08/28/25 20:49 Discontinued Medications Albuterol (Albuterol Rt 25 Mg/5 Ml Nebu) 10 mg INH X1 ONE Stop: 07/29/25 19:31 Last Admin: 07/29/25 19:56 Dose: 10 mg Albuterol (Albuterol Rt 2.5 Mg/0.5 Ml Nebu) 10 mg INH X1 ONE Stop: 07/29/25 19:57 Last Admin: 07/29/25 20:02 Dose: 10 mg Albuterol (Albuterol Rt 2.5 Mg/0.5 Ml Nebu) 10 mg INH X1 ONE Stop: 07/29/25 20:51 Last Admin: 07/29/25 20:57 Dose: 10 mg Magnesium Sulfate (Magnesium Sulfate Ivpb) 4 gm in 50 mls @ 12.5 mls/hr IV X1 ONE Stop: 07/29/25 23:32 Last Infusion: 07/29/25 20:28 Dose: Infused Ceftriaxone Sodium/Dextrose (Rocephin/D5w 1gm Iv Premix) 1 gm in 50 mls @ 100 mls/hr IV X1 ONE Stop: 07/29/25 20:08 Last Infusion: 07/29/25 20:29 Dose: Infused Methylprednisolone Sodium Succinate (Methylprednisolone Sod Succ 62.5 Mg/Ml 2ml Vial) 125 mg IVP X1 ONE Stop: 07/29/25 19:35 Last Admin: 07/29/25 19:37 Dose: 125 mg Assessment & Plan Plan 54M with severe persistent asthma, frequent ED visits and poor controller medication adherence, presenting with acute hypoxemic respiratory failure due to asthma exacerbation. Hypoxemia persists off O2 (sats to 87% RA). Leukocytosis likely reactive. Elevated Hgb consistent with secondary erythrocytosis due to chronic hypoxemia. No evidence of pneumonia or ACS. # Acute hypoxemic respiratory failure due to # Asthma exacerbation Patient with known severe persistent asthma, presenting with acute SOB, chest pressure, and hypoxemia (sat 86?88% RA, tachypneic to 45?50). Exam with diffuse wheezing and diminished air entry Improved with bronchodilators and O2 but desaturates off support. Labs notable for leukocytosis likely reactive and Hgb 16.5 suggesting secondary erythrocytosis from chronic hypoxemia. CXR clear, troponin/BNP negative. Plan: Admit to medicine O2 supplementation to keep sat >92% DuoNebs q4h scheduled + albuterol nebs PRN Prednisone 40 mg PO daily ? 5 days (start 07/30- end 08/03) Incentive spirometry Ambulatory O2 trial prior to discharge # Severe persistent asthma Chronic, poorly controlled, multiple exacerbations, poor adherence to controller meds. Plan: Home Lending Officer patient on importance of controller inhaler use Consider restarting Symbicort and montelukast as outpatient once he establishes PCP Outpatient referral to pulmonology once PCP established # JUAN baseline Cr 1.1, now 1.4. Likely pre-renal from dehydration/tachypnea. Plan: NS at 75 mL/hr maintenance Trend BMP daily Avoid nephrotoxins Strict I&O # Chest Pain Patient described pressure-like chest pain Likely related to bronchospasm and work of breathing ACS ruled out (troponin negative, EKG sinus tachycardia, BNP negative). Plan: Monitor symptoms Telemetry monitoring # Erythrocytosis Hgb 16.5, likely secondary to chronic intermittent hypoxemia. Plan: Monitor CBC trend No acute intervention required inpatient # Leukocytosis WBC 11.8, likely stress response. Afebrile, no infectious source identified. Plan: Monitor CBC daily No empiric antibiotics indicated at this time # Pre-diabetes # Hyperlipidemia Chronic. Plan: No acute management Lifestyle modification counseling outpatient Follow-up with PCP for repeat labs and management Health Maintenance Disposition: Admit to [facility] Tele Feeding: Regular diet as tolerated Thromboprophylaxis: Enoxaparin GI prophylaxis: Not indicated Code status: Full code ----- Plan discussed with attending physician Dr. Avel Srivastava MD PGY-1 Internal Medicine Attending Provider Attestation/Addendum I have discussed and was present for the essential components of the history, physical examination, diagnosis, and treatment plan with the resident. I agree with the patient's care as documented by the resident and amended herein by me. Maldonado Vallecillo DO. Although this document has been carefully reviewed, there may still be some phonetic and other typographical errors. These errors are purely grammatical due to imperfections in the software program and should not be construed in any way to compromise the substance of the patient's medical care during this visit.
[2025-07-30] VITALS (22 sets, daily range): BP systolic 98–172; BP diastolic 51–118; PULSE 96–160; RESP 17–88; TEMP 36.3–36.9; O2SAT 90–98; BMI 32.3
[2025-07-30] MEDS: SODIUM CHLORIDE 0.9% 1000 ML 1,000 ML 75 ML IV (00:25)
[2025-07-30] MEDS: INSULIN LISPRO (AdmeLOG) 1 UNIT/0.01 ML UNIT 5 UNIT SC (02:08)
[2025-07-30] MEDS: ALBUTEROL/IPRATROPIUM (Duoneb) RT SOL 3 ML NEBU INH ×5 (02:24→22:39)
--- NOTE | 2025-07-30 07:26 | PC.NURSE ---
Around 0630, patient complained of shortness of breath, desating into the the low 80s, and abdominal breathing, on 3 liters of oxygen via nasal cannula. Patient put 6 liters of oxygen via nasal cannula and came up into the 90s oxygen saturation, yet still short of breath. RT called to assess patient and she called doctor and orders received. Patient now resting comfortably in chair with normal work of breathing. Bedside shift report given to Beatrice CHICAS.
[2025-07-30] MEDS: ALBUTEROL RT 2.5 MG/3 ML NEBU INH (07:31)
[2025-07-30] MEDS: SODIUM CHLORIDE RT SOL 0.9% 3 ML NEBU INH (07:32)
[2025-07-30] MEDS: BENZONATATE 100 MG CAPSULE PO (08:17)
[2025-07-30] MEDS: FAMOTIDINE 20 MG TABLET PO (08:19)
--- NOTE | 2025-07-30 09:20 | PC.SS ---
Addendum entered by ARAMIS Tom 07/30/25 15:06: Rounding note: during rounding it was discussed that patients oxygen went up, Team B doctors will follow up with patient. Addendum entered by ARAMIS Tom 07/30/25 09:34: SS update: MANAGER MATERIALS MANAGEMENT inquired with Team B doctors if patient will need oxygen once medically clear, Team B doctors stated that patient was asking for oxygen but will not need oxygen once medically clear. Original Note: Patient is a 54 year old male presenting to the hospital for acute hypoxic resp failure. MANAGER MATERIALS MANAGEMENT met with patient at bedside role and reason was explained for visit. Patient confirmed demographic information and stated that his phone number is [phone]. MANAGER MATERIALS MANAGEMENT inquired if patient is unable to make medical decisions who would he like to name, patient stated he has no family. MANAGER MATERIALS MANAGEMENT inquired about patients friend listed on demographic, patient stated that if he is unable to make medical decisions he would like his friend Jessica Ingram PH: [phone]. 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 Patient stated that he is currently on oxygen. Patient stated he does not have oxygen and has never had any. Patient stated that his PCP is at [facility] and is unsure of their last appointment. Patient stated that he also sees Dr. Holland in [place]. His pharmacy is [facility]. Patient stated that once medically clear he would like tor return home and has transportation. PCP: [facility] D/c: home Decision Maker: Jessica Ingram PH: [phone]
--- NOTE | 2025-07-30 11:03 | ESPR_ITS ---
<Statement entered by Dominic Celis MD - 07/30/25 16:38> Overnight admission for 54-year-old male with past medical history of asthma and likely OHS/JENNIFER presenting with acute hypoxic respiratory failure secondary to asthma exacerbation. Patient apparently used to be on Symbicort but stopped taking it daily as he did not have any exacerbations for several months. Patient denies any inciting events, allergen exposure but does state that for the past several days he has been using his albuterol more often. Patient also states that he nearly always wakes up tired and does not feel well rested. During the day, patient did develop worsening of asthma likely related to anxiety and wanting to leave the hospital. Patient is currently on nasal cannula, currently being weaned off but still requiring excessive oxygen. Will continue breathing treatments with albuterol, IV Solu-Medrol, budesonide inhaler therapy along with symptomatic management of cough postnasal drip. Sanitary Landfill Operator/hyperion essbase developer was consulted for recommendations regarding patient's asthma and recommends obtaining a CT chest. Will continue monitor the patient and expect discharge within the next 48 hours. I have personally seen and examined the patient. I agree with the resident's assessment and plan as documented below. Dominic Celis DO PGY-2 Internal Medicine - [facility] Documentation for date of: 07/30/25 Subjective Subjective Interval history: No acute events overnight. Patient seen and examined at bedside this AM. Reports has not been taking montelukast or Symbicort for the past few months because he was feeling well. Has only been using albuterol inhaler, was educated that this should only be used for rescue purposes. Denies fever, chills, sputum production, hemoptysis, or chest pain. Saturating well currently on 4L NC this morning. 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 Was diagnosed with asthma at age 53. Has also been exercising excessively for the past 2 weeks, has only had to use his albuterol a handful of times, unlikely exercise induced asthma. Labs and vitals were reviewed. WBC elevated at 11.8 and Hgb 16.5, likely secondary to chronic hypoxia from lack of medication adherence. Absolute eosinophil count elevated at 500. Creatinine 1.4, baseline 1.0-1.2, discontinued NS as sodium elevated at 146, encouraged oral rehydration. Consulted hyperion essbase developer Dr. Harvey for medical management. Restarted budesonide 0.25mg BID and montelukast 10 mg daily. Recommend albuterol 10 mg x1 and IV mag sulf 2g over 20 minutes to stop bronchospasms and obtaining CT chest without contrast. Scheduled albuterol 5mg q6HRRT and 2.5 mg q20min max doses 3. Will continue to monitor and taper as tolerated. Switch from PO to IV solumedrol 40 mg BID as wheezing worsening. Restarted home loratidine 10 mg for seasonal allergies. Later this afternoon, wheezing worsened despite breathing treatment. On exam, patient had mild wheezing bilaterally, gave IV solumedrol 40 mg x1. Continued to complain of congestion and cough, scheduled Flonase nasal spray daily and promethazine q6hr prn. Review of systems otherwise negative except what is mentioned above. Exam Vital Signs Temp Pulse Resp BP Pulse Ox O2 Del Method O2 Flow Rate 97.3 F 107 H 28 H 164/95 H 98 Nasal Cannula 4 07/30/25 08:00 07/30/25 09:58 07/30/25 09:58 07/30/25 08:00 07/30/25 09:58 07/30/25 08:00 07/30/25 09:58 Narrative Exam Physical Exam General: Awake and in no acute distress. Conversational and non-toxic appearing. Overweight. HEENT: Normocephalic, atraumatic, mucous membranes moist. Heart: Regular rate and rhythm, normal S1 and S2, no murmurs. Lungs: Mild wheezing in right upper and lower lobes. Clear to auscultation in left lobes. Abdomen: Soft, nondistended, nontender, positive bowel sounds. No guarding or rebound tenderness. Neurologic: Alert and oriented x3, no gross neurological deficit, and patient able to move all 4 extremities. Extremities: No edema. Skin: No rash or ecchymoses. Objective Labs 07/31/25 05:28 07/31/25 05:28 Labs: Laboratory Results - last 24 hr 07/29/25 19:45 WBC 11.8 H RBC 5.86 Hgb 16.5 H Hct 50.4 MCV 86 MCH 28.2 MCHC 32.7 RDW Std Deviation 42.6 Plt Count 277 Neut % (Auto) 70 Lymph % (Auto) 15 [place] % (Auto) 10 Eos % (Auto) 5 Baso % (Auto) 1 Neut # (Auto) 8.2 H Lymph # (Auto) 1.8 [place] # (Auto) 1.1 H Eos # (Auto) 0.5 Baso # (Auto) 0.1 Immature Gran # (Auto) 0.04 H Absolute Nucleated RBC 0.00 Immature Gran % 0 Nucleated RBC % 0 PT 11.4 INR 1.0 APTT 25.4 Sodium 146 H Potassium 4.2 Chloride 108 H Carbon Dioxide 27.1 Anion Gap 11 BUN 18 Creatinine 1.4 H Estim Creat Clear Calc Not Performed. eGFR 59 L BUN/Creatinine Ratio 13 Glucose 103 Calculated Osmolality 292 Calcium 9.5 Corrected Calcium 9.5 Magnesium 2.2 Total Bilirubin 0.8 AST 24 ALT 24 Alkaline Phosphatase 111 Lactate Dehydrogenase 231 Troponin I < 0.020 B-Natriuretic Peptide < 20 Total Protein 6.9 Albumin 4.5 Globulin 2.4 Albumin/Globulin Ratio 1.9 Quality Measures Quality Measures VTE prophylaxis Assessment & Plan Assessment Current Active Medications: Generic Name Dose Route Start Last Admin Trade Name Freq PRN Reason Stop Dose Admin Acetaminophen 650 mg 07/29/25 23:11 Acetaminophen 325 Mg Tablet PO 08/28/25 23:10 Q6H PRN Fever >100.4 Albuterol/Ipratropium 3 ml 07/29/25 23:00 07/30/25 09:57 Albuterol/Ipratropium (Duoneb) Rt Alexandra 3 Ml Nebu INH 08/28/25 22:59 3 ml Q4HRRT ROCIO Administration Albuterol/Ipratropium 3 ml 07/30/25 10:15 Albuterol/Ipratropium (Duoneb) Rt Alexandra 3 Ml Nebu INH 08/29/25 10:14 Q2HR PRN SHORTNESS OF BREATH OR WHEEZE Benzonatate 100 mg 07/30/25 07:24 07/30/25 08:17 Benzonatate 100 Mg Capsule PO 08/29/25 07:23 100 mg Q8HR PRN Administration COUGH Protocol Budesonide 0.25 mg 07/30/25 19:00 Budesonide Rt 0.25 Mg/2 Ml Nebu INH 08/29/25 18:59 BIDRT [facility] Enoxaparin Sodium 40 mg 07/30/25 09:00 07/30/25 08:18 Enoxaparin Sod Inj 40 Mg/0.4 Ml Syringe SC 08/13/25 08:59 Not Given QDAY ROCIO Loratadine 10 mg 07/30/25 09:00 07/30/25 08:33 Loratadine 10 Mg Tablet PO 08/29/25 08:59 10 mg QDAY ROCIO Administration Methylprednisolone Sodium Succinate 40 mg 07/31/25 09:00 Methylprednisolone Sod Succ 40 Mg/Ml Vial IVP 08/07/25 08:59 QDAY ROCIO Montelukast Sodium 10 mg 07/30/25 21:00 Montelukast Sodium 10 Mg Tablet PO 08/29/25 20:59 HS ROCIO Ondansetron HCl 4 mg 07/29/25 23:11 Ondansetron Inj 2 Mg/Ml Inj 2 Ml IVP 08/28/25 23:10 Q6H PRN NAUSEA OR VOMITING Protocol Sodium Chloride 3 ml 07/29/25 20:50 07/30/25 07:32 Sodium Chloride Rt Alexandra 0.9% 3 Ml Nebu INH 08/28/25 20:49 3 ml PRN PRN Administration SOLN Plan Patient is a 54 year old male with PMH of severe persistent asthma who presented on 07/29 for acute shortness of breath, admitted for acute hypoxic respiratory failure secondary to asthma exacerbation. #AHRF 2/2 #Asthma exacerbation #Hx asthma Admission O2 saturation as low as 86 and tachypnic (RR 43), started on 3L -> 4L -> 12L. No ABG. Seen at [facility], however poor follow up. Was prescribed Symbicort and montelukast but has not been taking as he was feeling fine , was only taking as needed, last taken months ago. Using only albuterol inhaler at home. Plan: - Restarted budesonide 0.25 mg BIDRT and montelukast 10 mg daily - Consulted pulmonogist Dr. Harvey, appreciate recs: give albuterol 10mg x1 and IV mag suf 2g over span of 20 minutes - Albuterol 5mg q6HRRT and prn q20 min (max doses 3) - S/p prednisone 40 mg and IV solumedrol 40mg x1, scheduled IV solumedrol 40 mg BID starting tomorrow - CTM breathing - Incentive spirometry #Mild leukocytosis, likely reactive #Polycythemia, mild Admission WBC 11.8 and Hgb 16.5. Leukocytosis likely reactive iso of stress induced by hypoxia. Mild polycythemia also likely related to chronic underlying hypoxia. Plan: - CTM CBC - Encouraged oral rehydration as above #Congestion #Cough, nonproductive Likely secondary to seasonal allergies. Take Claritin 10mg sublingual tablets daily and cough syrup at home. Plan: - Continue home dose Claritin 10 mg daily - Start flonase nasal spray daily - Start promethazine 5 mL q6hr prn #OHS Reports not feeling well rested upon waking and snoring at night. BMI 32.4. Never had sleep study done. Plan: - Consider outpatient sleep study #Pre-diabetic (A1c 6.2 08/2024) Last A1c 6.2 in 08/2024. Glucose 103 on admission. No home diabetic medication listed. Reports he is trying to keep up healthy habits. - Follow up repeat A1c #HLD Lipid panel 02/20/24 shows trig 95, total cholesterol 202, LDL 134, HLD 49. Statin not listed on home meds. Making lifestyle changes per patient. - Follow up repeat lipid panel Health Maintenance Disposition: med surg, management of AHRF 2/2 asthma exacerbation DVT prophylaxis: Lovenox SQ GI prophylaxis: Zofran 4 mg prn Bowel regimen: not needed at this time Diet: Regular CODE STATUS: FULL Patient plan of care was discussed with the resident, Dr. Celis, and attending physician, Dr. Kwong. Bekah Cruz, PGY-1 Attending Provider Attestation/Addendum Ruby Zazueta, , attest that I was physically present for the daniels portions of the service and evaluated the patient with the resident and I reviewed and discussed the case with the resident and agree with the resident's findings and plans of care as documented above Patient seen and evaluated this AM. He states that he is feeling improved and is anxious to go home. However, patient continues to have scattered wheezing and on 4L/NC. Patient has not required any home O2. Patient has been prescribed Symbicort at home, but stopped using it since he felt that it was not making a difference for him. He had used nebulizers and his rescue inhalers without resolution at home which prompted him to come to ED. Will continue wtih IV steroids and breathing treatments, titrate O2 as tolerated. Pulmonology consulted as well.
--- NOTE | 2025-07-30 13:49 | PC.NURSE ---
patient states he used call light at 125 having shortness of breath with no answer so called back at 130 in which the charge nurse answered the call light requesting information on what the patient needed in order to send the right staff in. patient replied with he needs someone in here Penny CHICAS immediately checked on patient finding him short of breath and upset feeling ignored. Penny notified me at 1333 of the patient being upset and having some shortness of breath. I arrived at the room at 1335, patient sitting upright in the chair, alert, I asked generally, what's going on? are you having worse shortness of breath? to which he replied upset, What happened? I asked what he meant by that to which he replied that he used the milan and no one came in. I explained that I only knew he was using the call light because another nurse had came in and then called me. He said it took too long and he felt the other nurse was rude and told him that we were in an emergency. I apologized on behalf of the other nurse and that he felt like he was being ignored. I explained I needed to assess him noticing his shortness of breath and instructed deep breaths. Wheezing noted to all lung cates inspiratory and expiratory with sp02 88% 4L NC. NC increased to 5L with saturations 94%. I assured him we would address all of his concerns as soon as we could control his respiratory status. I called RT at 1340 informing her patient was wheezing with shortness of breath. She was finishing with a patient 2 doors down and would be in as soon as possible. I called Dr Cruz at 1343 informing her of the situation. ordered flonase and was hopeful patient would see improvement with RT treatment. Patient was still upset requesting to speak to charge nurse about situation. Charge nurse notified and said she would be in as soon as she was relieved from the desk. I stayed with patient waiting for RT. Charge Nurse arrived at 1348 and patient expressed his concerns. RT arrived at 1350 with the treatment. Patient still upset and didn't feel any sense of resolution. Charge nurse notified clerical warehouse worker of situation, let patient know we would get this resolved and our clerical warehouse worker would be in. Patient received treatment and clerical warehouse worker arrived at 1407 but patient was still short of breath so he requested she returned. Patient now requiring 12L oxymask to maintain 02 sats at 95%. Dr Cruz made aware of continued SOB and wheezing s/p treatment and stated she would be in to assess patient. [address] Cruz at bedside to assess patient. Placed orders for x1 solumedrol, cough medication, flonase and extra RT treatment. cardroom supervisor returned when patient's respiratory status was improved, at 1423, and patient shared concerns. All were addressed and patient was appreciative of this. Wheezing and respiratory effort has significantly improved. Headache present. Patient given tylenol
[2025-07-30] MEDS: BUDESONIDE RT 0.25 MG/2 ML NEBU INH ×2 (14:29→22:39)
[2025-07-30] MEDS: ACETAMINOPHEN 325 MG TABLET 650 MG PO (14:41)
[2025-07-30] MEDS: PROMETHAZINE/DM SYRUP 5 ML DOSE PO ×2 (14:53→20:58)
--- NOTE | 2025-07-30 15:27 | PC.NURSE ---
4230 Dr Harvey in to see patient for consult
[2025-07-30] MEDS: FLUTICASONE NAS SPRAY 0.05% 16 GM BTL 1 SPRAY NASAL ×2 (15:37→20:22)
--- NOTE | 2025-07-30 16:21 | XR_ITS ---
Examination: CT chest, without intravenous contrast. Sagittal and coronal 2-D reconstructions. Exam date and time: September 29, 2025, 1701 hrs. Indications: Acute difficulty breathing, clinical diagnosis asthma exacerbation. CTDI:vol (mGy) 14.0. DLP: (mGycm) 564. Technique: Multiple 3.0 mm axial sections of the chest to been obtained. Bone and lung density settings are obtained. Sagittal and coronal 2-D reconstructions have been obtained. Low dose protocols were performed. One or more of the following dose reduction techniques were used; automated exposure control, adjustment of the mA and/or KV according to patient size, use of iterative reconstruction technique. Findings: No thoracic aortic aneurysmal dilatation Pulmonary artery segments are not enlarged. No paratracheal, tracheobronchial or bronchopulmonary adenopathy. Scarring versus minor atelectasis in the right upper lobe. No lobar pneumonia or pulmonary edema. No pleural disease No visualized liver or splenic lesion. No gallstones. No pancreatic or adrenal mass. No hydronephrosis, kidneys partially visualized. Moderate osteopenia with chronic wedging lower dorsal vertebral bodies. Impression: Negative for pulmonary artery hypertension. No mediastinal lymphadenopathy. No pneumonia, pulmonary edema or pleural disease.
--- NOTE | 2025-07-30 16:25 | PD.PUCONS ---
[facility] Pulmonology Consult Data of Consult Requesting Physician: Eron Vallecillo DO Primary Care Provider: Zoran Miller MD Consult Narrative History of present illness: Patient is a 54-year-old male with past medical history significant for asthma diagnosed approximately 18 months ago. Patient was started on albuterol as well as Symbicort. Reports that he is not compliant with the Symbicort regularly because he feels that he was doing well and does not need it. Patient is a avid weightlifter and does circuit training daily. He notes that in the previous year and a half he continues to increase his tolerance for higher weights and repetitions along with pace. Patient reports that approximately 48 hours before arrival to the emergency department he had taken a hot shower and the following morning felt that his breathing significantly worsened. Started having significant cough which precipitated further wheezing and led him to have significant dyspnea. Patient reports that he has no prior history of asthma exacerbations requiring hospitalization but he was seen at the hospital approximately 6 months ago and was discharged from the ED after being given an injection of steroids. He completed course at home. Prior to 18 months ago the patient had no significant respiratory symptoms whatsoever. Patient notes that he did have COVID infection in 2020 that he was able to recover and the repeat exposure never had infection again. 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 The last few days he has been very busy and unable to work out that he notes because he has been placing new mary. 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 Patient without any fever, chills, or night sweats. Does not have any chest pain but chest tightness with his breathing. Patient notes that he sometimes does get shortness of breath that forces him to stop doing exercise at the gym. He uses his albuterol at these times and he does have improvement along with rest. Patient had no childhood history of atopy though he reports that he developed allergies and has had them for the majority of his life. Previous history of sinus surgery in 2019 where he was told by ENT that upon drainage of the sinuses that there may have been fungal infection. He has had previous testing for coccidiodomycosis and this has been negative. He does not know what type of fungus it was at that ENTt physician found. Patient has seen supervisor commercial fish hatchery in [place], he is unaware of the results of this test other than him consistent with asthma. He was given inhalers as described above by this physician that he does not follow-up routinely. cc:: cc: Eron Vallecillo, Review of Systems Review of Systems Narrative Review of Systems: A pertinent review of systems was completed with significant findings included in HPI above Past Medical History Past Medical History Comments PMH COMMENT: Pertinent past medical history and surgical history included in HPI. Patient without any significant family history of atopy, eczema, asthma or other significant lung disease. Patient is a never smoker, did have some cigars. In his 20s. No significant alcohol use history. Patient denies any use of illicit substances. Elevated weight lifting into the wrist, denies any use of illicit supplements. He does use creatine, vitamins, supplemental protein, and preworkout. Meds Home Medications and Allergies Allergies Allergy/AdvReac Type Severity Reaction Status Date / Time No Known Drug Allergies Allergy Verified 07/29/25 19:25 Exam Vital Signs Temp Pulse Resp BP Pulse Ox O2 Del Method O2 Flow Rate 98.0 F 91 19 122/75 99 Oxy Mask 6 07/30/25 23:25 07/31/25 02:09 07/31/25 02:09 07/30/25 23:25 07/31/25 02:09 07/30/25 23:25 07/31/25 02:09 Narrative Exam GEN: NAD, AAOX3 HEENT: EOMI, MMM NECK: No JVD, no stridor CVS: S1/S2+ RRR PULM: Severe diffuse wheezing bilaterally ABD: ND, NT, BS+ EXT: No peripheral cyanosis/ clubbing NEURO: Nonfocal on gross examination PSYCH: Appropriate mood/ affect Physical Exam Completion Physical Exam Complete?: Yes Results - Director [employer] 07/31/25 05:28 07/31/25 05:28 Assessment & Plan Additional Plan Additional Plan: Moderate to severe persistent asthma with acute exacerbation Will exclude infection as precipitant of exacerbation However occupational exposure seems to be most likely scenario with 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 Does not have any significant risk factors for poor outcome of disease nonetheless. Also having significant night symptoms at baseline suggesting need to either reinforce therapy or step up Patient does have significant history of eosinophilia with significant count of 900 in early May. Patient started on steroids now endorsing rapid depletion likely. Patient may benefit in the future from use of biologic therapy if he does not respond appropriately to consistent/compliant use of LABA/ICS or escalation to triple therapy Patient will benefit from imaging to exclude presence of alternative diagnosis given his late presentation asthma. However he has had lifelong atopy as evidenced by history of significant sinus disease. I am unsure of any of his cycling of exercise tropic supplements may be also precipitating component of disease there continues to show improvement from athletic perspective He would benefit from use of albuterol prior to exercise, usually needs to do at least 15 minutes before vigorous workout Patient does have established care with with a supervisor commercial fish hatchery in [place] and would benefit from follow-up in the long run Additionally with significant eosinophilia, will exclude presence of elevated IgE which will increase options for further biologic therapy in the future along with exclusion of Aspergillus as ABPA may be worsening his disease. If significant mucus production is noted on imaging and this may be a consistent finding. Should continue on antihistamine therapy as he usually does along with montelukast, and extensive counseling on ensuring that appropriate technique and compliance with both LABA/ICS as well as BOBBY Thank you for allowing me to participate in the care of this patient, I will continue to follow along during his hospital course. Provider Notation Provider Notation: Although this document has been carefully reviewed, there may still be some phonetic and other typographical errors. These errors are purely grammatical due to imperfections in the software program and should not be construed in any way to compromise the substance of the patient's medical care during this visit. Thank you for the opportunity and privilege in assisting you with this patient's care and management.
[2025-07-30] MEDS: ALBUTEROL RT 2.5 MG/0.5 ML NEBU 10 MG INH (17:11)
[2025-07-30] MEDS: Magnesium Sulfate 2 GM Ivpb 2 GM/50 ML BAG IV (18:09)
[2025-07-30] MEDS: MONTELUKAST SODIUM 10 MG TABLET PO (20:22)
--- NOTE | 2025-07-30 21:33 | PC.NURSE ---
notified dr rico of blood glucose of 251, pt just finished his regular diet dinner which also contained a pie and regular soda. states she will start patient on insulin protocol starting tomorrow morning and no insulin was ordered for tonight.
[2025-07-30] MEDS: MELATONIN 3 MG TABLET 6 MG PO (23:17)
[2025-07-31] VITALS (11 sets, daily range): BP systolic 124–149; BP diastolic 77–90; PULSE 87–104; RESP 15–23; TEMP 36.4–37.1; O2SAT 91–99
[2025-07-31] MEDS: ALBUTEROL/IPRATROPIUM (Duoneb) RT SOL 3 ML NEBU INH (02:09)
[2025-07-31] MEDS: FLUTICASONE NAS SPRAY 0.05% 16 GM BTL 1 SPRAY NASAL ×2 (05:16→08:54)
[2025-07-31] MEDS: PROMETHAZINE/DM SYRUP 5 ML DOSE PO (05:17)
[2025-07-31 05:50] LABS: Basophils # (Auto) 0.0 Thou/mm3 (0.0-0.2); Basophils % (Auto) 0 % (0-2.5); Eosinophils # (Auto) 0.0 Thou/mm3 (0.0-0.5); Eosinophils % (Auto) 0 % (0-10); Hematocrit 45.0 % (41.0-53.0); Hemoglobin 14.8 g/dL (13.5-16.0); Immature Granulocytes Auto 0.14 Thou/mm3 (0.00-0.00); Lymphocytes # (Auto) 0.6 Thou/mm3 (1.0-4.8); Lymphocytes % (Auto) 3 % (10-50); Mean Corpuscular HGB Conc 32.9 g/dl (31.0-37.0); Mean Corpuscular Hemoglobin 28.6 pg (25.0-35.0); Mean Corpuscular Volume 87 fL (80-100); Monocytes # (Auto) 0.6 Thou/mm3 (0.0-0.8); Monocytes % (Auto) 3 % (0-12); Neutrophils # (Auto) 16.4 Thou/mm3 (1.8-7.7); Neutrophils % (Auto) 93 % (37-80); Nucleated Red Blood Cell # 0.00 Thou/mm3 (0.00-0.00); Nucleated Red Blood Cell % 0 /100 WBC (0); Platelet Count 258 Thou/mm3 (140-440); RDW Standard Deviation 45.1 fL (35.1-43.9); Red Blood Count 5.18 Miln/mm3 (4.50-5.90); White Blood Count 17.7 Thou/mm3 (3.8-10.6)
[2025-07-31 06:24] LABS: Glucose Estimated Average 117 mg/dL (80-131); Hemoglobin A1C 5.7 % Hgb (4.8-6.0)
[2025-07-31 06:26] LABS: Alanine Aminotransferase 22 U/L (10-49); Albumin, Serum 4.0 gm/dL (3.5-5.0); Albumin/Globulin Ratio 1.8 (1.2-2.2); Alkaline Phosphatase 98 U/L (46-116); Anion Gap 12 (7-16); Aspartate Amino Transferase 19 U/L (0-34); BUN/Creatinine Ratio 17 Ratio (12-20); Bilirubin,Total 0.5 mg/dL (0.3-1.2); Blood Urea Nitrogen 22 mg/dL (9-23); Calcium 9.5 mg/dL (8.3-10.6); Calcium (Corrected) 9.5 mg/dL (8.5-10.1); Carbon Dioxide 24.5 mMol/L (20.0-31.0); Cardiac Risk Estimate 4.2 RATIO (4.0-6.7); Chloride 107 mMol/L (98-107); Cholesterol 193 mg/dL (132-200); Creatinine (Component) 1.3 mg/dL (0.6-1.3); Estimated Creatinine Clearance 70.6 mL/min (>60); Globulin 2.2 gm/dL (2.3-3.5); Glucose 144 mg/dL (74-106); HDL Cholesterol 46 mg/dL (40-60); LDL Cholesterol,Calculated 133 mg/dL (0-130); Magnesium 2.1 mg/dL (1.6-2.6); Osmolality,Calculated 291 (275-295); Phosphorous 3.3 mg/dL (2.4-5.1); Potassium 4.6 mMol/L (3.4-5.1); Sodium 143 mMol/L (136-145); Total Protein 6.2 gm/dL (5.7-8.2); Triglycerides 70 mg/dL (30-150); eGFR > 60 See Note
[2025-07-31] MEDS: ALBUTEROL RT 2.5 MG/0.5 ML NEBU 5 MG INH ×2 (07:10→12:02)
[2025-07-31] MEDS: BUDESONIDE RT 0.5 MG/2 ML NEBU INH (07:11)
[2025-07-31] MEDS: INSULIN LISPRO (AdmeLOG) 1 UNIT/0.01 ML UNIT SC (07:37)
--- NOTE | 2025-07-31 08:27 | ESDS_ITS ---
<Statement entered by Ruby Kwong DO - 08/01/25 08:03> I, Ruby Kwong DO, attest that I was physically present for the daniels portions of the service and evaluated the patient with the resident and I reviewed and discussed the case with the resident and agree with the resident's findings and plans of care as documented above <Statement entered by Dominic Celis MD - 07/31/25 16:38> 54-year-old male with past medical history of asthma, obesity who presented to the ED with shortness of breath found to be in acute asthma exacerbation. Patient was admitted and started on albuterol inhaler/nebulizer treatments, IV steroids and ICS inhalers. Patient required supplemental oxygenation as he was desaturating. Riveting Machine Operator [employer] was consulted and recommended ordering IgE, Aspergillus and CT of chest to monitor for lung pathology. CT chest was negative and remaining labs are still pending but patient improved. Patient has several risk factors for developing trigger of asthma including occupational hazards/allergens and the fact that he does not use his Symbicort inhaler daily as directed. Had extensive conversation with the patient regarding his asthma diagnosis and the importance of continuing daily ICS and using albuterol only as a rescue inhaler. Patient is agreeable and will follow-up at the [facility]. I have personally seen and examined the patient. I agree with the resident's discharge summary as documented below. Dominic Celis DO PGY-2 Internal Medicine - GME Planned Discharge Date 07/31/25 DS: Providers Provider Date of admission: 07/30/25 00:07 Primary care physician: Zoran Miller MD Admitting Provider: Eron Vallecillo DO Attending Provider on Admission: Eron Vallecillo DO Consults: 07/30/25 02:01 Referral Chalo Routine Comment: 07/30/25 11:35 Consult to [employer] Routine Comment: Consulting Provider: Patrice Harvey I Attending Provider on DC: RESIDENT Scott Discharging Provider: RESIDENT Scott DS: Diagnosis Problem List Completed Was Problem List Reviewed/Reconciled?: Yes Hospital Course Hospital Course Hospital course: Summary: Patient is a 54 year old male with PMH of severe persistent asthma who presented on 07/29 for acute shortness of breath, admitted for acute hypoxic respiratory failure secondary to asthma exacerbation. ED Course: Vitals: BP 179/96, HR 108, RR 45?50, HR 110?120s, 86?88% on RA Labs: WBC 11.8, Hgb 16.5, Cr 1.4 (baseline 1.1), troponin and BNP were negative, COVID negative, Imaging: CXR showed no acute disease EKG showed sinus tachycardia without ST and T wave abnormalities noted. Given in ED: albuterol 10 x3, albuterol 2.5 x2, IV mag sulf 4g x1, Solumderol x1, IVP CFX 1g Reason for hospitalization: Patient is a 54 year old male with PMH of severe persistent asthma who presented on 07/29 for acute shortness of breath, admitted for acute hypoxic respiratory failure secondary to asthma exacerbation. He was started on supplemental oxygen, albuterol inhaler/nebulizer treatments, IV steroids and ICS inhalers. Pulmono logist Dr. Harvey was consulted, recommended ordering IgE, Aspergillus, and CT of chest to monitor for lung pathology. CT chest was negative and remaining labs are still pending but patient improved. Patient has several risk factors for developing trigger of asthma including occupational hazards/allergens and is noncompliant with Symbicort daily. Had extensive conversation with the patient regarding his asthma diagnosis and the importance of continuing daily ICS and using albuterol only as a rescue inhaler. Recommended avoiding potential allergen triggers. Patient was safely discharged home with portable oxygen per request and is agreeable to follow-up at the [facility]. Discharge Recommendations: - Please take Symbicort 160/4.5 mcg aerosol inhaler 2 puffs twice a day every day to avoid asthma exacerbation - Please take Albuterol 90mcg 2 puffs before work outs - use spacer as directed - Please take Medrol Lauro (steroid taper) as directed - Continue all other home medications as stated below - Please follow-up with your PCP within 1 week, asked to be referred to a sleep specialist for sleep study as you most likely have obstructive sleep apnea - If your symptoms worsen or if you develop new chest pain, shortness of breath, dizziness or bleeding, please come back to the ED immediately. - Follow up with Dr. Celis at [facility] [place] [address] [address] tel: [employer] phone number: [phone] or [phone] Hospital Diagnoses: #AHRF 2/2 #Asthma exacerbation #Hx asthma #Mild leukocytosis, likely reactive #Polycythemia, mild #Congestion #Cough, nonproductive #OHS #Pre-diabetic (A1c 6.2 08/2024) #HLD Disposition: Safe discharge to home. Patient plan of care was discussed with the resident, Dr. Celis, and attending physician, Dr. Kwong. Bekah Cruz, PGY-1 Time Spent with Patient Time attestation: Total time spent providing and/or coordinating discharge services: at least 30 minutes of care coordination Time spent: Greater than 30 minutes Exam Vital Signs Temp Pulse Resp BP Pulse Ox O2 Del Method O2 Flow Rate 97.6 F 98 15 124/78 93 L Oxy Mask 3 07/31/25 08:00 07/31/25 08:00 07/31/25 08:00 07/31/25 08:00 07/31/25 08:00 07/31/25 08:00 07/31/25 08:00 Narrative Exam Physical Exam General: Awake and in no acute distress. Conversational and non-toxic appearing. Overweight. HEENT: Normocephalic, atraumatic, mucous membranes moist. Heart: Regular rate and rhythm, normal S1 and S2, no murmurs. Lungs: Mild wheezing in right upper and lower lobes. Clear to auscultation in left lobes. Abdomen: Soft, nondistended, nontender, positive bowel sounds. No guarding or rebound tenderness. Neurologic: Alert and oriented x3, no gross neurological deficit, and patient able to move all 4 extremities. Extremities: No edema. Skin: No rash or ecchymoses. Discharge Plan Plan Patient Disposition: HOME (Self Care) Disposition Comment: on 3L O2 Care Plan Goals: Please take Symbicort 160/4.5 mcg aerosol inhaler 2 puffs twice a day every day to avoid asthma exacerbation Please take Albuterol 90mcg 2 puffs before work outs - use spacer as directed Please take Medrol Lauro (steroid taper) as directed Continue all other home medications as stated below Please follow-up with your PCP within 1 week, asked to be referred to a sleep specialist for sleep study as you most likely have obstructive sleep apnea If your symptoms worsen or if you develop new chest pain, shortness of breath, dizziness or bleeding - please come back to the ED immediately. Follow up with Dr. Celis at [address] [place] [address] tel: [employer] phone number: [phone] or [phone] Prescriptions/Referrals Prescriptions/Med Rec: New methylprednisolone [Medrol (Lauro)] 4 mg tablets,dose pack 4 mg PO QDAY Qty: 21 0RF budesonide-formoterol [Symbicort] 160-4.5 mcg/actuation HFA aerosol inhaler 2 puff inhalation BID Qty: 10.2 1RF albuterol sulfate 90 mcg/actuation aerosol powdr breath activated 2 inh inhalation Q6H PRN (Reason: shortness of breath or wheezing) Qty: 1 2RF Rx Instructions: Use before working out Continued (DME) nebulizers Misc See Rx Instructions .Route Qty: 1 0RF Rx Instructions: Use QID and PRN with Albuterol As directed montelukast 10 mg tablet 10 mg PO QDAY MDD 10 mg Qty: 30 1RF loratadine [Claritin] 10 mg tablet 10 mg PO QDAY Qty: 30 0RF Discontinued albuterol sulfate 90 mcg/actuation aerosol powdr breath activated 1 inh inhalation QID PRN (Reason: Wheezing or shortness of breath) Qty: 1 6RF albuterol sulfate 1.25 mg/3 mL solution for nebulization 1.25 mg inhalation QID PRN (Reason: Wheezing/SOB) Qty: 90 2RF hydrocortisone [Anti-Itch (HC)] 1 % cream 1 applic topical QDAY PRN (Reason: skin irritation) Qty: 28.35 0RF indomethacin 25 mg capsule 25 mg PO BID Qty: 10 0RF Rx Instructions: administer with food or milk gabapentin 100 mg capsule 100 mg PO QHS Qty: 7 0RF budesonide-formoterol [Symbicort] 160-4.5 mcg/actuation HFA aerosol inhaler 2 puff inhalation BID 30 Days Qty: 10.2 1RF albuterol sulfate 2.5 mg /3 mL (0.083 %) solution for nebulization 2.5 mg inhalation Q4H PRN (Reason: shortness of breath or wheezing) Qty: 90 0RF albuterol sulfate 90 mcg/actuation HFA aerosol inhaler 2 inh inhalation Q4H PRN (Reason: shortness of breath or wheezing) Qty: 8.5 0RF Rx Instructions: With AeroChamber and mask for pediatric use albuterol sulfate 90 mcg/actuation HFA aerosol inhaler 2 puff inhalation QID PRN (Reason: shortness of breath or wheezing) Qty: 8.5 0RF albuterol sulfate 90 mcg/actuation HFA aerosol inhaler 2 puff inhalation QID PRN (Reason: shortness of breath or wheezing) Qty: 8.5 0RF Referrals: Patrice Harvey MD [Physician] - Zoran Miller MD [Primary Care Provider] - Patient/Caregiver Discharge Instructions Education Materials: Controlling Asthma Triggers ..., Asthma Medicine, Asthma Trigger Checklist Print Language: Turkmen Stand Alone Forms: Anne Award Info., Patient Portal Info Letter Discharge Order Discharge Orders: Discharge (Routine); Ordered 07/31/25 Ordered By: Dominic Celis Quality Discharge Quality Measures none
[2025-07-31] MEDS: ENOXAPARIN SOD INJ 40 MG/0.4 ML SYRINGE SC (08:53)
--- NOTE | 2025-07-31 09:00 | PC.SS ---
Addendum entered by Sherrill Butler 07/31/25 10:38: SS was informed by Philipp and Maira from [facility] pt has a [employer] insurance plan and they are not contracted. SS has faxed DME order to [facility]. Home O2 testing is still pending. Addendum entered by Sherrill Butler 07/31/25 09:35: SS has sent DME order using [facility] Care: [facility] [address] [facility] [address] [place], [place] [facility] [address] [place], [place] [facility] [address] [place], [place] [facility] [address] [place], [place] [facility] [address] [place], [place] [facility] [address] [place], [place] Original Note: SS met with bedside nurseSunni this morning to explain pt is requiring O2 testing to order home O2. SS met with pt who is aware and confirmed demographic information. SS provided RnSunni with the What qualifies for Medicare O2 Portability form which explains how to test for home O2.
--- NOTE | 2025-07-31 11:00 | PC.NURSE ---
Patient on 3L oxygen at rest stating at 95%. Patient on room air at rest stating at 92%. Patient on room air sitting at bedside stating at 92%. Patient on room air ambulating stating at 87%. Put patient back on 3L patient stating at 96%
--- NOTE | 2025-07-31 11:52 | PC.NURSE ---
discharge orders are in waiting on be delivered
[2025-07-31] MEDS: FAMOTIDINE 20 MG TABLET PO (12:00)
[2025-07-31 12:02] LABS: Cocci Serology, IgM Negative (Negative)
--- NOTE | 2025-07-31 12:09 | PC.SS ---
SS has faxed DME order and O2 testing (from bedside nurse, Sunni) to [employer].
--- NOTE | 2025-07-31 12:33 | PC.SS ---
SS spoke to Bryce from [employer] who is aware pt will d/c home today and to deliver O2 concentrator and small O2 tank to bedside. Bryce confirmed he has received DME order and is processing the DME request. SS provided Bryce with [facility] address and patient's room . Pt is aware. Bedside nurseSunni is aware.
--- NOTE | 2025-07-31 14:13 | PD.PUPROG ---
Documentation for date of: 07/31/25 Subjective Subjective Interval history: Patient seen at bedside this morning. Reports that his wheezing has improved and the chest tightness is better. He continues to be on OxyMask at 2 L. Patient reports that at home and when he follows up with his PCP that his oxygen typically runs in the low 90s but never dropped below 88. Patient does not feel significant dyspnea. He is hopeful that he can go home today. We did ambulate this afternoon on the grossman with multiple laps. Patient without significant desaturation and tolerated room air. Critical Care Note Critical care time (min.): 0 Exam Vital Signs Temp Pulse Resp BP Pulse Ox O2 Del Method O2 Flow Rate 97.8 F 92 20 149/90 H 99 Oxy Mask 3 07/31/25 12:00 07/31/25 12:03 07/31/25 12:03 07/31/25 12:00 07/31/25 12:03 07/31/25 12:00 07/31/25 12:03 Narrative Exam GEN: NAD, AAOX3 HEENT: EOMI, MMM NECK: No JVD, no stridor CVS: S1/S2+ RRR PULM: Clear to auscultation bilaterally ABD: ND, NT, BS+ EXT: No peripheral cyanosis/ clubbing NEURO: Nonfocal on gross examination PSYCH: Appropriate mood/ affect Physical Exam Completion Physical Exam Complete?: Yes Objective - [employer] Labs 07/31/25 05:28 07/31/25 05:28 Labs: Laboratory Results - last 24 hr 07/31/25 05:28 WBC 17.7 H D RBC 5.18 Hgb 14.8 Hct 45.0 MCV 87 MCH 28.6 MCHC 32.9 RDW Std Deviation 45.1 H Plt Count 258 Neut % (Auto) 93 H Lymph % (Auto) 3 L Emmons % (Auto) 3 Eos % (Auto) 0 Baso % (Auto) 0 Neut # (Auto) 16.4 H Lymph # (Auto) 0.6 L Emmons # (Auto) 0.6 Eos # (Auto) 0.0 Baso # (Auto) 0.0 Immature Gran # (Auto) 0.14 H Absolute Nucleated RBC 0.00 Immature Gran % 1 H Nucleated RBC % 0 Sodium 143 Potassium 4.6 Chloride 107 Carbon Dioxide 24.5 Anion Gap 12 BUN 22 Creatinine 1.3 Estim Creat Clear Calc 70.6 eGFR > 60 BUN/Creatinine Ratio [address] Glu mg/dL 117 Hemoglobin A1c 5.7 Calculated Osmolality 291 Calcium 9.5 Corrected Calcium 9.5 Phosphorus 3.3 Magnesium 2.1 Total Bilirubin 0.5 AST 19 ALT 22 Alkaline Phosphatase 98 Total Protein 6.2 Albumin 4.0 D Globulin 2.2 L Albumin/Globulin Ratio 1.8 Triglycerides 70 Cholesterol 193 LDL Cholesterol, Calc 133 H HDL Cholesterol 46 Cholesterol/HDL Ratio 4.2 Coccidioides IgM Ab Negative Assessment & Plan Additional Plan Additional Plan: Moderate persistent asthma with acute exacerbation Likely precipitated by occupational exposure, 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 though he does report he was using a mask CT reviewed without significant findings of parenchymal disease though there may be old scarring in the right upper lobe due to prior COVID infection that he reports in 2020, no definitive evidence of diffuse bronchiectasis No evidence of infection at this point Continue on PO prednisone for 5 days upon discharge He was counseled on technique for use of his BOBBY inhaler as well as correct technique for LABA/ICS Bobby should be used approximately 15 minutes prior to vigorous exercise to prevent exercise-induced spasm Compliance will be integral for prevention of recurrent exacerbations Patient with notable significant eosinophilia which may be amenable to treatment with biologics against IL-5 in the future Maintain up-to-date vaccinations Patient may have component of obstructive sleep apnea, did suggest that he buy pulse oximeter and have somebody check them at home and when he works out Patient will be weaned off oxygen as tolerated, has been arranged for him to use at home and should he continue have desaturation and should be used with exertion and while asleep Patient should follow-up with medicine residents and I will be available by telephone in 1 week, if he is able to establish 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 These errors are purely grammatical due to imperfections in the software program and should not be construed in any way to compromise the substance of the patient's medical care during this visit. Thank you for the opportunity and privilege in assisting you with this patient's care and management.
--- NOTE | 2025-07-31 17:31 | PC.NURSE ---
Called Dr. Celis and explained to him patient does not want to wait for O2 delivery. Patient was cleared to go home with no O2 earlier in the day by Dr. Harvey he passed his O2 test. I will discharge patient.
--- NOTE | 2025-07-31 17:55 | PC.NURSE ---
if oxygen gets delivered please call patient and he will come pick it up
[2025-08-02 11:43] LABS: Cocci Serology, IgG Negative (Negative)
[2025-08-03 15:37] LABS: Index Value <0.50
[2025-08-06 08:54] LABS: IgE, Serum* 649 kU/L (114 OR LESS)
[2025-08-06 08:58] LABS: Aspergillus Ag, Ser* NOT DETECTED
== END 2025-07-31 17:53 | disposition home or self-care (01) | DRG 141 ==
LOC: SERX 21:57 → SERHOLD 07-30 00:54 → S3NX 07-30 01:06
PROVIDERS: Internal Medicine; Registered Nurse General Practice; Admitting Provider Student in an Organized Health Care Education/Training Program; Emergency Provider Emergency Medicine; PCP Family Medicine; Visit Provider Student in an Organized Health Care Education/Training Program
DX: J45.51 Severe persistent asthma with (acute) exacerbation (principal); J96.01 Acute respiratory failure with hypoxia; D75.1 Secondary polycythemia; N17.9 Acute kidney failure, unspecified; R73.03 Prediabetes; E78.5 Hyperlipidemia, unspecified; E86.0 Dehydration; D72.829 Elevated white blood cell count, unspecified; F41.9 Anxiety disorder, unspecified; E66.9 Obesity, unspecified; D72.10 Eosinophilia, unspecified; Z86.16 Personal history of COVID-19; Z68.32 Body mass index [BMI] 32.0-32.9, adult
CPT/HCPCS: 36415; 71045; 71250; 80048; 80053; 80061; 80307; 81001; 82785; 83036; 83615; 83735; 83880; 84100; 84484; 85025; 85610; 85730; 86331; 86635; 87305; 87400; 87811; 93005; 93225; 94640; 94644; 94762; 96365; 96375; 99284; A9270; J0696; J1650; J1815; J2919; J3475; J7030; J7512; J7609

== ENCOUNTER 2025-09-19 14:21 | Outpatient (AMB) | payer MEDICAID, SELFPAY ==
--- NOTE | 2025-09-19 14:39 | ACNOTE_ITS ---
Vital Signs 09/19/25 14:56 Height 1.7 m Height Method Stated Weight 94.517 kg Weight Measurement Method Standing Scale BMI 32.6 BP 175/93 H Blood Pressure Source Automatic Cuff Blood Pressure Location Left Upper Arm Position Sitting Respiration 18 Pulse 81 Pulse Source Monitor Temp 97.7 F Temp Source Temporal Artery Scan Pulse Oximetry (%) 93 L Oxygen Delivery Method Room Air Allergies/Meds Allergies & Medications Allergies No Known Drug Allergies Allergy (Verified 09/19/25 14:57) Medication Reconciliation nebulizers #1 ea 08/07/24 [Rx Confirmed 09/19/25] montelukast 10 mg tablet 10 mg PO QDAY asthma #30 tabs 01/30/25 [Rx Confirmed 09/19/25] loratadine 10 mg tablet (Claritin) 10 mg PO QDAY #30 tabs 06/02/25 [Rx Confirmed 09/19/25] budesonide-formoterol HFA 160 mcg-4.5 mcg/actuation aerosol inhaler (Symbicort) 2 puff inhalation BID #10.2 grams 07/31/25 [Rx Confirmed 09/19/25] methylprednisolone 4 mg tablets in a dose pack (Medrol (Lauro)) 4 mg PO QDAY #21 tabs 07/31/25 [Rx Confirmed 09/19/25] albuterol sulfate 90 mcg/actuation breath activated powder inhaler (ProAir RespiClick) 2 inh inhalation Q6H PRN shortness of breath or wheezing #1 ea 09/19/25 [Rx] tiotropium bromide 1.25 mcg/actuation mist for inhalation 2 puff inhalation QAM #4 grams 09/19/25 [Rx] MA Intake Visit Data Collection New Patient or Established: Established Patient (seen at [facility] within 3 years) Seen by Clinical Staff ONLY (RN/MA): No Pain Present Currently: No Pain scale:: 0 Pain Scale Used: BustilloMaci/Numerical Hand Quilter Required: No PCP or OBGYN visit in last 3 months: Yes Date of Last PCP or OBGYN visit: 07/30/25 Smoking Status Smoking Status: Never smoker Immunization / Flu Flu Vaccine in the Last 12 Months: No Flu Vaccine Exclusion Criteria: No Exclusion Criteria Past Medical History Past Medical History NEUROLOGIC: Negative Neurological Disorders or Seizures CARDIAC: Negative Cardiac Disorders or Congestive Heart Failure RESPIRATORY: Positive Asthma; Negative Chronic Obstructive Pulmonary Disease (COPD) GASTROINTESTINAL: Negative Gastrointestinal Disorders or Hepatitis GENITOURINARY: Positive Genitourinary Disorders, Kidney Stones and Inguinal Hernia; Negative Renal Disease, Polycystic Kidney Disease, Neurogenic Bladder, Dialysis or Benign Prostatic Hyperplasia MUSCULOSKELETAL: Positive Fractures; Negative Arthritis ENDOCRINE: Negative Endocrine Disorders, Diabetes Mellitus Type 1 or Diabetes Mellitus Type 2 HEMATOLOGIC: Negative Blood Disorders OTHER HISTORY: Negative Hospitalization, Autoimmune Disease, Shingles, Falls, Blood Transfusions, Blood Transfusion Reaction, Anesthesia Reactions, MRSA or Cancer Family History FAMILY HISTORY: Positive Family Cardiac Disorders and Family Cancer; Negative Family Psychiatric Problems, Family Respiratory Disorders, Family Gastrointestinal Problems, Family Surgery or Family Anesthesia Reaction Surgical History SURGICAL: Positive Ear Surgery, Nose Surgery and Joint Replacement (Toe fracture repair.); Negative Cardiac Surgery, Endocrine Surgery, Abdominal Surgery or Neurologic Surgery Social History SMOKING STATUS: Smoking status: Never smoker ALCOHOL: Alcohol Intake: Former HOUSING: Housing: House LIVES WITH: Lives With: Alone Patient Portal Questionaires Social History Living Situation History Housing: House Tobacco History Smoking Status: Never smoker Alcohol History Alcohol Intake: Former Review of Systems Report any current symptoms Only answer those that you have currently: Past Medical History Past Medical History Have you ever been diagnosed with any of the following: Neurological Problems Seizures: No Cardiology Problems Congestive Heart Failure: No Respiratory Problems Chronic Obstructive Pulmonary Disease (COPD): No Asthma: Yes Stomache/Intestinal Problems Hepatitis: No Genital/Urinary Problems Renal Disease: No Kidney Stones: Yes Polycystic Kidney Disease: No Neurogenic Bladder: No Inguinal Hernia: Yes Dialysis: No Benign Prostatic Hyperplasia: No Musculoskeletal Problems Arthritis: No Fractures: Yes Endocrine Problems Diabetes Mellitus Type 1: No Diabetes Mellitus Type 2: No Other Problems Hospitalization: No Autoimmune Disease: No Shingles: No Falls: No Blood Transfusions: No Blood Transfusion Reaction: No Anesthesia Reactions: No MRSA: No Cancer: No History of Present Illness HPI Narrative 55-year-old male with past medical history of poorly controlled asthma, obesity, hypertensive presenting to the [facility] for hospital follow-up after he was discharged for acute asthma exacerbation. Patient states that since discharge he has been doing well; however, for the past 2 weeks patient has been symptoms continue to worsen. Patient states that since the weather change he has developed increased shortness of breath and wheezing and has resulted in using his albuterol rescue inhaler at least 4 times a day. Patient was also seen by professional golf tournament player at this visit who recommended adding a LAMA inhaler to the regimen. Patient had IgE send out labs when he was admitted which we will follow-up on. During intake, patient's blood pressure slightly elevated but we will monitor this on the next visit and consider antihypertensives if necessary. Objective/Exam Narrative Physical exam: Physical Exam: GENERAL: Awake, answering questions appropriately HEENT: NC/AT. Moist mucosa. PERRLA/EOMI. CARDIO: Heart RRR, no obvious murmurs, no JVD. PULM: No coughing or visible SOB. Bilateral wheezing auscultated especially on lower lung bases GI: Abdomen soft, NT/ND, +BS SKIN/MSK/EXT: No wounds/discoloration/rashes/edema/amputations. +Pedal pulses present B/L. NEURO: Oriented x3, Moves extremities x4, no focal neurologic deficits Assessment & Plan Diagnosis / Problem List (1) Active asthma: Status: Chronic Assessment & Plan: Patient on Symbicort and albuterol rescue inhaler, uses albuterol 4 times a day Pending IgE levels Plan: Will follow-up on IgE levels Started patient on tiotropium once a day 2 puff inhaler Will follow-up in 6 weeks regarding improvement in asthma symptoms Office Procedures [facility] Level of Care Nursing/Assessment Patient Status: Established Patient Nursing Assessment/Reassessment: Medication Reconciliation, Update PMH in EMR and Vital Signs Coordination of Care: Complex Care and Chronic Disease 1-5, Complex Care/Chronic Disease 5 or more, Consent,records obtained, informed consent, Lab and Imaging orders, Results/Orders obtained and Staff clarify orders Established Patient Charge Established Patient Point Assignment: 125 Established Patient Point Charge: EP Level 4 (120-155)
[2025-09-19 14:56] VITALS: BP 175/93; PULSE 81; RESP 18; TEMP 36.5; O2SAT 93; BMI 32.6
== END 2025-09-19 15:41 | disposition home or self-care (01) ==
LOC: HODAHC 14:21
PROVIDERS: Supervising Provider Internal Medicine
DX: J45.909 Unspecified asthma, uncomplicated (principal); E66.9 Obesity, unspecified; Z68.32 Body mass index [BMI] 32.0-32.9, adult; I10 Essential (primary) hypertension
CPT/HCPCS: 99214; G0463

== ENCOUNTER 2025-10-12 13:09 | Outpatient (AMB) | payer MEDICAID, SELFPAY ==
[2025-10-12 13:22] VITALS: BP 152/83; PULSE 76; RESP 18; TEMP 36.7; O2SAT 94; BMI 33.3
--- NOTE | 2025-10-12 13:22 | ACNOTE_ITS ---
Vital Signs 10/12/25 13:22 Height 1.7 m Height Method Stated Weight 96.275 kg Weight Measurement Method Standing Scale BMI 33.3 BP 152/83 H Blood Pressure Source Automatic Cuff Blood Pressure Location Right Upper Arm Position Sitting Respiration 18 Pulse 76 Pulse Source Monitor Temp 98.1 F Temp Source Temporal Artery Scan Pulse Oximetry (%) 94 L Oxygen Delivery Method Room Air Allergies/Meds Allergies & Medications Allergies No Known Drug Allergies Allergy (Verified 10/12/25 13:24) Medication Reconciliation nebulizers #1 ea 08/07/24 [Rx Confirmed 10/12/25] loratadine 10 mg tablet (Claritin) 10 mg PO QDAY #30 tabs 06/02/25 [Rx Confirmed 10/12/25] methylprednisolone 4 mg tablets in a dose pack (Medrol (Lauro)) 4 mg PO QDAY #21 tabs 07/31/25 [Rx Confirmed 10/12/25] albuterol sulfate 90 mcg/actuation breath activated powder inhaler (ProAir RespiClick) 2 inh inhalation Q6H PRN shortness of breath or wheezing #1 ea 09/19/25 [Rx Confirmed 10/12/25] amlodipine 5 mg tablet 5 mg PO QDAY 1 month #30 tabs 10/12/25 [Rx] budesonide-formoterol HFA 160 mcg-4.5 mcg/actuation aerosol inhaler (Symbicort) 2 puff inhalation BID #10.2 grams 10/12/25 [Rx] montelukast 10 mg tablet 10 mg PO QDAY asthma #30 tabs 10/12/25 [Rx] tiotropium bromide 1.25 mcg/actuation mist for inhalation 2 puff inhalation QAM #4 grams 10/12/25 [Rx] MA Intake Visit Data Collection New Patient or Established: Established Patient (seen at [facility] within 3 years) Seen by Clinical Staff ONLY (RN/MA): No Pain Present Currently: No Pain scale:: 0 Pain Scale Used: BustilloMaci/Numerical Mechanic Insulator Required: No PCP or OBGYN visit in last 3 months: Yes Do You Feel Safe at Home: Yes Authorities Contacted: N/A Smoking Status Smoking Status: Never smoker Immunization / Flu Flu Vaccine in the Last 12 Months: No Flu Vaccine Exclusion Criteria: No Exclusion Criteria Past Medical History Past Medical History NEUROLOGIC: Negative Neurological Disorders or Seizures CARDIAC: Negative Cardiac Disorders or Congestive Heart Failure RESPIRATORY: Positive Asthma; Negative Chronic Obstructive Pulmonary Disease (COPD) GASTROINTESTINAL: Negative Gastrointestinal Disorders or Hepatitis GENITOURINARY: Positive Genitourinary Disorders, Kidney Stones and Inguinal Hernia; Negative Renal Disease, Polycystic Kidney Disease, Neurogenic Bladder, Dialysis or Benign Prostatic Hyperplasia MUSCULOSKELETAL: Positive Fractures; Negative Arthritis ENDOCRINE: Negative Endocrine Disorders, Diabetes Mellitus Type 1 or Diabetes Mellitus Type 2 HEMATOLOGIC: Negative Blood Disorders OTHER HISTORY: Negative Hospitalization, Autoimmune Disease, Shingles, Falls, Blood Transfusions, Blood Transfusion Reaction, Anesthesia Reactions, MRSA or Cancer Family History FAMILY HISTORY: Positive Family Cardiac Disorders and Family Cancer; Negative Family Psychiatric Problems, Family Respiratory Disorders, Family Gastrointestinal Problems, Family Surgery or Family Anesthesia Reaction Surgical History SURGICAL: Positive Ear Surgery, Nose Surgery and Joint Replacement (Toe fracture repair.); Negative Cardiac Surgery, Endocrine Surgery, Abdominal Surgery or Neurologic Surgery Social History SMOKING STATUS: Smoking status: Never smoker ALCOHOL: Alcohol Intake: Former HOUSING: Housing: House LIVES WITH: Lives With: Alone Patient Portal Questionaires PHQ-9 PHQ-2 Over the last 2 weeks, how often have you been bothered by any of the following problems? 1. Little interest or pleasure in doing things: not at all 2. Feeling down, depressed, or hopeless: not at all Total score: 0 Social History Living Situation History Housing: House Tobacco History Smoking Status: Never smoker Alcohol History Alcohol Intake: Former Domestic Abuse History Do You Feel Safe at Home: Yes Review of Systems Report any current symptoms Only answer those that you have currently: Past Medical History Past Medical History Have you ever been diagnosed with any of the following: Neurological Problems Seizures: No Cardiology Problems Congestive Heart Failure: No Respiratory Problems Chronic Obstructive Pulmonary Disease (COPD): No Asthma: Yes Stomache/Intestinal Problems Hepatitis: No Genital/Urinary Problems Renal Disease: No Kidney Stones: Yes Polycystic Kidney Disease: No Neurogenic Bladder: No Inguinal Hernia: Yes Dialysis: No Benign Prostatic Hyperplasia: No Musculoskeletal Problems Arthritis: No Fractures: Yes Endocrine Problems Diabetes Mellitus Type 1: No Diabetes Mellitus Type 2: No Other Problems Hospitalization: No Autoimmune Disease: No Shingles: No Falls: No Blood Transfusions: No Blood Transfusion Reaction: No Anesthesia Reactions: No MRSA: No Cancer: No History of Present Illness HPI Narrative 55-year-old male with past medical history of poorly controlled asthma, obesity, hypertensive presenting to the [facility] for asthma control follow-up. 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 He is using albuterol four times a day nearly every day and states he had a week where he was feeling really short of breath and contemplated going to ED. He also states that he has some depressive episodes but no thoughts of harming himself or others. He currently lives alone but continues to have an active lifestyle. Objective/Exam Narrative Physical exam: Physical Exam: GENERAL: Awake, answering questions appropriately HEENT: NC/AT. Moist mucosa. PERRLA/EOMI. CARDIO: Heart RRR, no obvious murmurs, no JVD. PULM: No coughing or visible SOB. No wheezing noted but patient recently used Albuterol inhaler GI: Abdomen soft, NT/ND, +BS SKIN/MSK/EXT: No wounds/discoloration/rashes/edema/amputations. +Pedal pulses present B/L. NEURO: Oriented x3, Moves extremities x4, no focal neurologic deficits Assessment & Plan Diagnosis / Problem List (1) Active asthma: Status: Chronic Assessment & Plan: Patient continues to be on Symbicort and albuterol rescue inhaler, uses albuterol 4 times a day patient was started on tiotropium once a day 2 puff inhaler, but did not pharmacy picking tech inhaler due to pharmacy issue ACT program - asthma controlled test score of 8 (poorly controlled asthma) Plan: Will follow-up on IgE levels - unable to find them on EMR Reinforced importance of following correct inhaler regimen; Will follow-up in 4 weeks regarding improvement in asthma symptoms Will refer to online respiratory therapy for pulmonary rehab Office Procedures [facility] Level of Care Nursing/Assessment Patient Status: Established Patient Nursing Assessment/Reassessment: Medication Reconciliation, Update PMH in EMR and Vital Signs Coordination of Care: Complex Care and Chronic Disease 1-5, Complex Care/Chronic Disease 5 or more, Consent,records obtained, informed consent, Lab and Imaging orders, Results/Orders obtained and Staff clarify orders Established Patient Charge Established Patient Point Assignment: 125 Established Patient Point Charge: Level 4 (120-155)
== END 2025-10-12 13:51 | disposition home or self-care (01) ==
LOC: HODAHC 13:09
PROVIDERS: Supervising Provider Internal Medicine
DX: J45.909 Unspecified asthma, uncomplicated (principal); E66.9 Obesity, unspecified; Z68.33 Body mass index [BMI] 33.0-33.9, adult; Z60.2 Problems related to living alone; I10 Essential (primary) hypertension
CPT/HCPCS: 99214; G0463

== ENCOUNTER 2025-11-14 13:06 | Outpatient (AMB) | payer MEDICAID, SELFPAY ==
[2025-11-14 13:21] VITALS: BP 116/75; PULSE 65; RESP 18; TEMP 36.6; O2SAT 94; BMI 32.8
--- NOTE | 2025-11-14 13:21 | ACNOTE_ITS ---
Vital Signs 11/14/25 13:21 Height 1.7 m Height Method Stated Weight 94.971 kg Weight Measurement Method Standing Scale BMI 32.8 BP 116/75 Blood Pressure Source Automatic Cuff Blood Pressure Location Right Upper Arm Position Sitting Respiration 18 Pulse 65 Pulse Source Monitor Temp 97.8 F Temp Source Temporal Artery Scan Pulse Oximetry (%) 94 L Oxygen Delivery Method Room Air Allergies/Meds Allergies & Medications Allergies No Known Drug Allergies Allergy (Verified 11/14/25 13:22) Medication Reconciliation nebulizers #1 ea 08/07/24 [Rx Confirmed 11/14/25] methylprednisolone 4 mg tablets in a dose pack (Medrol (Lauro)) 4 mg PO QDAY #21 tabs 07/31/25 [Rx Confirmed 11/14/25] albuterol sulfate 90 mcg/actuation breath activated powder inhaler (ProAir RespiClick) 2 inh inhalation Q6H PRN shortness of breath or wheezing #1 ea 09/19/25 [Rx Confirmed 11/14/25] budesonide-formoterol HFA 160 mcg-4.5 mcg/actuation aerosol inhaler (Symbicort) 2 puff inhalation BID #10.2 grams 11/14/25 [Rx] loratadine 10 mg tablet (Claritin) 10 mg PO QDAY #30 tabs 11/14/25 [Rx] montelukast 10 mg tablet 10 mg PO QDAY asthma #30 tabs 11/14/25 [Rx] tiotropium bromide 1.25 mcg/actuation mist for inhalation 2 puff inhalation QAM #4 grams 11/14/25 [Rx] MA Intake Visit Data Collection New Patient or Established: Established Patient (seen at [facility] within 3 years) Seen by Clinical Staff ONLY (RN/MA): No Pain Present Currently: No Pain scale:: 0 Pain Scale Used: [place]/[employer]ical [employer] Supervisor Required: No PCP or OBGYN visit in last 3 months: Yes Do You Feel Safe at Home: Yes Authorities Contacted: N/A Smoking Status Smoking Status: Never smoker Immunization / Flu Flu Vaccine in the Last 12 Months: No Flu Vaccine Exclusion Criteria: Refused by Patient Past Medical History Past Medical History NEUROLOGIC: Negative Neurological Disorders or Seizures CARDIAC: Negative Cardiac Disorders or Congestive Heart Failure RESPIRATORY: Positive Asthma; Negative Chronic Obstructive Pulmonary Disease (COPD) GASTROINTESTINAL: Negative Gastrointestinal Disorders or Hepatitis GENITOURINARY: Positive Genitourinary Disorders, Kidney Stones and Inguinal Hernia; Negative Renal Disease, Polycystic Kidney Disease, Neurogenic Bladder, Dialysis or Benign Prostatic Hyperplasia MUSCULOSKELETAL: Positive Fractures; Negative Arthritis ENDOCRINE: Negative Endocrine Disorders, Diabetes Mellitus Type 1 or Diabetes Mellitus Type 2 HEMATOLOGIC: Negative Blood Disorders OTHER HISTORY: Negative Hospitalization, Autoimmune Disease, Shingles, Falls, Blood Transfusions, Blood Transfusion Reaction, Anesthesia Reactions, MRSA or Cancer Family History FAMILY HISTORY: Positive Family Cardiac Disorders and Family Cancer; Negative Family Psychiatric Problems, Family Respiratory Disorders, Family Gastrointestinal Problems, Family Surgery or Family Anesthesia Reaction Surgical History SURGICAL: Positive Ear Surgery, Nose Surgery and Joint Replacement (Toe fracture repair.); Negative Cardiac Surgery, Endocrine Surgery, Abdominal Surgery or Neurologic Surgery Social History SMOKING STATUS: Smoking status: Never smoker ALCOHOL: Alcohol Intake: Former HOUSING: Housing: House LIVES WITH: Lives With: Alone Patient Portal Questionaires PHQ-9 PHQ-2 Over the last 2 weeks, how often have you been bothered by any of the following problems? 1. Little interest or pleasure in doing things: not at all Social History Living Situation History Housing: House Tobacco History Smoking Status: Never smoker Alcohol History Alcohol Intake: Former Domestic Abuse History Do You Feel Safe at Home: Yes Review of Systems Report any current symptoms Only answer those that you have currently: Past Medical History Past Medical History Have you ever been diagnosed with any of the following: Neurological Problems Seizures: No Cardiology Problems Congestive Heart Failure: No Respiratory Problems Chronic Obstructive Pulmonary Disease (COPD): No Asthma: Yes Stomache/Intestinal Problems Hepatitis: No Genital/Urinary Problems Renal Disease: No Kidney Stones: Yes Polycystic Kidney Disease: No Neurogenic Bladder: No Inguinal Hernia: Yes Dialysis: No Benign Prostatic Hyperplasia: No Musculoskeletal Problems Arthritis: No Fractures: Yes Endocrine Problems Diabetes Mellitus Type 1: No Diabetes Mellitus Type 2: No Other Problems Hospitalization: No Autoimmune Disease: No Shingles: No Falls: No Blood Transfusions: No Blood Transfusion Reaction: No Anesthesia Reactions: No MRSA: No Cancer: No History of Present Illness HPI Narrative 55-year-old male with past medical history of poorly controlled asthma, obesity, hypertensive presenting to the [facility] for asthma control follow-up. Patient states that since last being seen he has not been able to roll picker Tiotropium inhaler and has only used his Symbicort and Albuterol inhalers. He is using albuterol four times a day nearly every day and states he had a week where he was feeling really short of breath and contemplated going to ED. He also states that he has some depressive episodes but no thoughts of harming himself or others. He currently lives alone but continues to have an active lifestyle. 11/14/25: Patient was seen and examined in the clinic today. He stated that his symptoms have markedly improved from previous visit and was wondering if he can get a refill on his inhalers. He stated that his symptoms have gone down and has been only waking up at the night majorly otherwise he has not used his rescue inhaler during the past month. His asthma control test score was 21 significantly improved with inhaler. He was offered to receive flu shot from any pharmacy which he was willing to take. He stated that his work life has improved and is able to do exercise better than previous time. He denies smoking or drinking alcohol. Refill prescription was given for his medications including inhalers and montelukast along with Claritin. Follow-up in a month with CBC and CMP for annual checkup. Review of Systems Review of Systems Systems Reviewed: All systems reviewed, normal except as documented Objective/Exam Narrative Physical exam: GENERAL APPEARANCE: AxOx4, generally well-appearing male in no acute distress. HEENT: NC, AT. MMM. EOMI, clear conjunctiva, oropharynx clear. NECK: Supple without lymphadenopathy. No stiffness or restricted ROM. HEART: Normal rate and regular rhythm, normal S1/S2, no m/r/g LUNGS: CTAB, moving air well. No crackles or wheezes are heard. ABDOMEN: Soft, nontender, nondistended with good bowel sounds heard. No wheezing heard. BACK: No CVAT, no obvious deformity. EXTREMITIES: Without cyanosis, clubbing or edema. NEUROLOGICAL: Grossly nonfocal. Alert and oriented, moving all 4 extremities. CN not formally tested but appear grossly intact. Observed to ambulate with normal gait. Skin: Warm and dry without any rash. Psych:Appropriate mood and affect Assessment & Plan Diagnosis / Problem List (1) Active asthma: Status: Chronic Assessment & Plan: Patient continues to be on Symbicort and tiotropium once a day 2 puff inhaler. Patient has not used albuterol rescue inhaler in past 1 month. ACT program - asthma controlled test score improved from 8---->21 after inhaler use. Plan: Recommended to continue using his inhaler including Symbicort and tiotropium Patient was advised to use rescue inhaler if symptoms worsen at any time If symptoms did not improve with either of his inhaler recommended to go to the ED immediately Prescription refill given for inhalers and Claritin plus montelukast Reinforced importance of following correct inhaler regimen Follow-up in a month with CBC and CMP for annual checkup -- Patient was seen and discussed with attending Physician, Dr Zoë auguste MD PGY3 Orders: Orders CBC 12/14/25 Comprehensive Metabolic Panel 12/14/25 Comprehensive Metabolic Panel 12/14/25 J45.909 - Unspecified asthma, uncomplica evangelina CBC 12/14/25 J45.909 - Unspecified asthma, uncomplicated Office Procedures [facility] Level of Care Nursing/Assessment Patient Status: Established Patient Nursing Assessment/Reassessment: Medication Reconciliation, Update PMH in EMR and Vital Signs Coordination of Care: Complex Care and Chronic Disease 1-5, Complex Care/Chronic Disease 5 or more, Consent,records obtained, informed consent, Lab and Imaging orders, Results/Orders obtained and Staff clarify orders Established Patient Charge Established Patient Point Assignment: 125 Established Patient Point Charge: Level 4 (120-155)
== END 2025-11-14 14:17 | disposition home or self-care (01) ==
LOC: HODAHC 13:06
PROVIDERS: Supervising Provider Internal Medicine; Visit Provider Student in an Organized Health Care Education/Training Program
DX: Z76.0 Encounter for issue of repeat prescription (principal); J45.909 Unspecified asthma, uncomplicated
CPT/HCPCS: 99214; G0463